=== PATIENT | female | born 1980 | race Caucasian/White ===

== ENCOUNTER 2020-11-07 14:53 | Outpatient (REF) | payer OTHER, SELFPAY | END 2020-11-07 14:54 | disposition home or self-care (01) | LOC: HO.LAB 14:53 | PROVIDERS: PCP Internal Medicine; Visit Provider Internal Medicine | DX: Z20.828 Contact with and (suspected) exposure to other viral communicable diseases (principal) | CPT/HCPCS: C9803; U0003 ==

== ENCOUNTER 2021-03-11 08:59 | Outpatient (REF) | payer OTHER, SELFPAY ==
[2021-03-14 05:42] LABS: HPV mRNA E6/E7 rflx Not Detected (Not Detected)
== END 2021-03-11 09:00 | disposition home or self-care (01) ==
LOC: HO.LAB 08:59
PROVIDERS: PCP Internal Medicine; Visit Provider Obstetrics & Gynecology
DX: Z01.419 Encounter for gynecological examination (general) (routine) without abnormal findings (principal)
CPT/HCPCS: 87624; 88142

== ENCOUNTER 2021-04-10 06:22 | Outpatient (REF) | payer OTHER, SELFPAY ==
[2021-04-10 11:32] LABS: MANUAL DIFF FLAG NO
[2021-04-10 11:47] LABS: Basophils Percent Auto 0.5 % (0-2); Eosinophils Absolute Auto 0.1 X10*3/uL (0.0-0.4); Eosinophils Percent Auto 2.2 % (0-4); Hematocrit 40.7 % (37-47); Hemoglobin 12.9 g/dl (12.0-16.0); Imm Gran Abs Auto 0.02 X10*3/uL (0.00-0.03); Imm Gran Pct Auto 0.3 % (0.0-0.4); Lymphocytes Absolute Auto 1.8 X10*3/uL (1.2-4.9); Lymphocytes Percent Auto 28.1 % (20-40); Mean Corpuscular HGB Conc 31.7 g/dl (31.0-35.0); Mean Corpuscular Hemoglobin 29.5 pg (27.0-33.0); Mean Corpuscular Volume 92.9 fL (80-98); Mean Platelet Volume 9.6 fL (9.4-12.3); Monocytes Absolute Auto 0.4 X10*3/uL (0.1-1.2); Monocytes Percent Auto 5.7 % (2-11); Neutrophils Percent Auto 63.2 % (45-73); Platelet Count 437 X10*3/uL (160-400); Red Blood Count 4.38 X10*6/uL (4.20-5.50); Red Cell Distribution Width 12.7 % (11.0-16.0); White Blood Count 6.4 X10*3/uL (4.8-10.8)
[2021-04-10 11:58] LABS: Glucose Urine UA NEG (NEG); Leukocyte Esterase Urine NEG (NEG); Nitrite Urine NEG (NEG); Specific Gravity - Urine 1.025 (1.005-1.025); Urine Blood NEG (NEG); Urine Ketones NEG (NEG); Urine Protein NEG (NEG-TRACE)
[2021-04-10 12:03] LABS: Alanine Aminotransferase 55 U/L (0-31); Albumin Level 3.9 g/dL (3.5-5.0); Alkaline Phosphatase 118 U/L (39-117); Anion Gap 12 (12-20); Aspartate Amino Transferase 32 U/L (5-31); Bilirubin Total 0.3 mg/dL (0.0-1.0); Blood Urea Nitrogen 17 mg/dL (9-16); Calcium 9.5 mg/dL (8.4-10.2); Carbon Dioxide 29 mmol/L (22-29); Chloride 102 mmol/L (96-108); Cholesterol 193 mg/dL; Estimated Glomerular Filt Rate > 60; Glucose Fasting 91 mg/dL (60-99); HDL Cholesterol 68 mg/dL; LDL Cholesterol Calculated 114 mg/dl; Potassium 4.2 mmol/L (3.3-5.1); Sodium 139 mmol/L (135-145); Total Protein 6.1 g/dL (6.5-8.0); Triglycerides 59 mg/dL
[2021-04-10 12:05] LABS: Appearance Urine CLEAR; Color Urine YELLOW
[2021-04-10 12:26] LABS: TSH reflex Free T4 2.15 uIU/mL (0.32-4.0); Vitamin D 25-OH Total 37.2 ng/mL (>30)
[2021-04-10 12:29] LABS: Erythrocyte Sedimentation Rate 7 MM/HR (0-20)
== END 2021-04-10 06:23 | disposition home or self-care (01) ==
LOC: HO.HMGCLDS 06:22
PROVIDERS: PCP Internal Medicine; Visit Provider Internal Medicine
DX: Z00.00 Encounter for general adult medical examination without abnormal findings (principal); R51.9 Headache, unspecified; G89.29 Other chronic pain; E55.9 Vitamin D deficiency, unspecified
CPT/HCPCS: 36415; 80053; 80061; 81003; 82306; 84443; 85025; 85652

== ENCOUNTER 2021-04-25 15:44 | Outpatient (REF) | payer OTHER, SELFPAY ==
--- NOTE | ~2021-04-25 | MM_ITS ---
EXAMINATION: MM SCREENING DIGITAL BREAST TOMOSYNTHESIS, BILATERAL CLINICAL INFORMATION: Screening. Asymptomatic. No prior breast imaging. Age 40. No known family history breast cancer. The lifetime risk of breast cancer based on the Tyrer-Cuzick Model is 13%. COMPARISON: None (current study represents initial baseline exam). TECHNIQUE: Digital breast tomosynthesis is performed in both the craniocaudal and mediolateral oblique views along with computer-aided detection (CAD). Synthesized 2D images are generated from the tomosynthesis. FINDINGS: The breasts are heterogeneously dense, which may obscure small masses (ACR BI-RADS breast composition Category c). Breast tissue composition borders on average fibroglandular. There are no significant masses, abnormal calcifications, or other abnormalities. The axilla and skin contours are unremarkable. MM/MM tomosynthesis screening BI IMPRESSION: No mammographic evidence of malignancy. ASSESSMENT: BI-RADS 1: Negative RECOMMENDATION: Routine annual mammography screening. This patient's information was entered into a reminder system with a target due date for their next mammogram.
== END 2021-04-25 15:45 | disposition home or self-care (01) ==
LOC: HO.MAMMO 15:44
PROVIDERS: Visit Provider Obstetrics & Gynecology
DX: Z12.31 Encounter for screening mammogram for malignant neoplasm of breast (principal)
CPT/HCPCS: 77063; 77067

== ENCOUNTER 2021-09-11 17:49 | Emergency (ER) | payer OTHER, SELFPAY ==
--- NOTE | ~2021-09-11 | CT_ITS ---
EXAM: Noncontrast CT scan of the head and cervical spine. INDICATION: Fall with head injury and neck pain. COMPARISON: None TECHNIQUE: Axial slices were obtained from skull base to vertex and displayed. This was followed by helical, multislice, multidetector axial images from the occiput to the upper thorax. Coronal and sagittal reformats of the cervical spine in addition to coronal reformats of the head were obtained at the technologist workstation. DLP: 1179 mGy-cm FINDINGS: HEAD: There is no evidence of acute intracranial hemorrhage or territorial infarction. No abnormal mass effect or midline shift is appreciated. Wright-white differentiation is well preserved. No extra-axial fluid collections. The ventricular system and cortical sulci are normal in size. The osseous structures and soft tissues are normal. The visualized paranasal sinuses and mastoid air cells are well aerated. SPINE: There is straightening of the normal cervical lordosis. Alignment is otherwise unremarkable. Normal C1/2 articulation. Vertebral body heights and disc spaces are well-maintained. No significant degenerative changes. No prevertebral soft tissue swelling. Visualized lung apices are well aerated. CT/CT cervical spine wo con IMPRESSION: 1. No acute intracranial pathology. 2. No fractures or dislocations of the cervical spine. This CT examination was performed using dose optimization techniques as appropriate, variously including the following: *Automated exposure control *Adjustment of mA and/or kV according to patient size (this includes techniques or standardized protocols for targeted exams where dose is matched to indication/reason for exam; i.e. extremities or head) *Use of iterative reconstruction technique
--- NOTE | ~2021-09-11 | CT_ITS ---
EXAM: Noncontrast CT scan of the head and cervical spine. INDICATION: Fall with head injury and neck pain. COMPARISON: None TECHNIQUE: Axial slices were obtained from skull base to vertex and displayed. This was followed by helical, multislice, multidetector axial images from the occiput to the upper thorax. Coronal and sagittal reformats of the cervical spine in addition to coronal reformats of the head were obtained at the technologist workstation. DLP: 1179 mGy-cm FINDINGS: HEAD: There is no evidence of acute intracranial hemorrhage or territorial infarction. No abnormal mass effect or midline shift is appreciated. Wright-white differentiation is well preserved. No extra-axial fluid collections. The ventricular system and cortical sulci are normal in size. The osseous structures and soft tissues are normal. The visualized paranasal sinuses and mastoid air cells are well aerated. SPINE: There is straightening of the normal cervical lordosis. Alignment is otherwise unremarkable. Normal C1/2 articulation. Vertebral body heights and disc spaces are well-maintained. No significant degenerative changes. No prevertebral soft tissue swelling. Visualized lung apices are well aerated. CT/CT head/brain wo con IMPRESSION: 1. No acute intracranial pathology. 2. No fractures or dislocations of the cervical spine. This CT examination was performed using dose optimization techniques as appropriate, variously including the following: *Automated exposure control *Adjustment of mA and/or kV according to patient size (this includes techniques or standardized protocols for targeted exams where dose is matched to indication/reason for exam; i.e. extremities or head) *Use of iterative reconstruction technique
[2021-09-11 18:02] VITALS: BP 119/72; PULSE 76; RESP 18; TEMP 36.6; O2SAT 98; BMI 23.0
--- NOTE | 2021-09-11 19:38 | ED_ITS ---
HPI - Head Injury General Chief complaint: Fall Stated complaint: concussion? Time Seen by Provider: 09/11/21 19:36 Source: patient Mode of arrival: ambulatory Limitations: no limitations History of Present Illness HPI Narrative: 40-year-old female came in for evaluation of headache after a fall. Patient was carrying a baby then tripped on objects on the floor fell down twisting her body, hit her head and neck, and the right shoulder, also hurting her both knees, patient do not remember how she exactly fell. Patient otherwise declined blurry vision, nausea, vomiting, or fever. Related Data Home Medications Medication Instructions Recorded Confirmed spironolactone 100 mg tablet 100 mg PO BID 09/11/21 Allergies Allergy/AdvReac Type Severity Reaction Status Date / Time sulfadiazine Allergy Unknown unknown Verified 09/11/21 18:06 Review of Systems Review of Systems: All other systems are reviewed and are negative Constitutional: Reports as per HPI and Reports no additional constitutional complaints Eyes: Reports as per HPI and Reports no additional eye complaints Reports system reviewed and no additional complaints, except as documented Cardiovascular: Reports as per HPI and Reports no additional cardiovascular complaints Respiratory: Reports as per HPI and Reports no additional respiratory complaints Gastrointestinal: Reports as per HPI and Reports no additional gastrointestinal complaints Genitourinary: Reports no additional female genitourinary complaints Musculoskeletal: Reports no additional musculoskeletal complaints Skin/Breast: Reports system reviewed and no additional complaints, except as docu Psychiatric: Reports no additional psychiatric complaints Endocrine: Reports no additional endocrine complaints Hematologic/Lymphatic: Reports no additional hematologic/lymphatic complaints Allergic/Immunologic: Reports no additional allergic/immunologic complaints Reports system reviewed and no additional complaints, except as documented and Reports Abnormal speech present [facility] Past Medical History Medical History Depression Headache Surgical History No pertinent past surgical history Family History Family History Father Medical history unknown Mother Stroke Diabetes CVD (cardiovascular disease) Social History Social History Alcohol intake: current Alcohol intake frequency: holidays/special occasions only Advance Directives: No Gender identity: Female Physical Exam Vital Signs: Vital Signs: Last Vital Signs Temp 97.9 F 09/11/21 18:02 Pulse 76 09/11/21 18:02 Resp 18 09/11/21 18:02 BP 119/72 09/11/21 18:02 Pulse Ox 98 09/11/21 18:02 Body Mass Index 23.0 Vital signs have been reviewed as appeared to be correct. Blood pressure normal. Heart rate normal. Respiration rate normal. Temperature normal. Oxygen saturation normal. Appearance: Alert. Oriented X3. No acute distress. GCS 15 Head: Normal external exam. Normocephalic. Atraumatic. No Hoskins signs noted. No raccoon eyes noted Eyes: PERRLA. EOMI. Conjunctiva and sclera normal. Eyelids normal. ENT: TM's Normal. Pharynx normal. Uvula midline. Moist mucous membranes. No trismus noted. No drooling noted. No muffled voice noted. Neck: Normal inspection. Neck supple. FROM. No adenopathy. Thyroid Normal. No meningeal signs. No neck mass noted. CVS: Normal heart rate and rhythm. Heart sound normal. No murmurs noted. Pulses normal throughout. Respiratory: No respiratory distress. Painless inspiration. Breath sounds normal. No wheezes/rales/rhonchi noted. Chest nontender. No accessory muscle usage noted or decreased air movement noted. Abdomen: Soft and nontender. Bowel sounds normal in all 4 quadrants. No distention noted. No organomegaly noted. No visible injury noted. Back: No CVA tenderness. Full range of motion noted. Skin: Skin warm and dry. Normal skin color. Normal skin turgor. No rashes/lesions/lacerations noted. Extremities: Right shoulder tenderness, no step-off, no deformity, painful for range of motion, 3 x 4 cm area of ecchymosis on lateral aspect of the right arm, bilateral knee tenderness, no deformity, no swelling, full range of motion. Neuro: Oriented X 3. GCS 15 Cranial nerve exam: II-XII are grossly intact No motor deficit. No sensory deficit. Reflexes normal. Course Course Course Narrative: Assessment and plan. 40-year-old female status post fall yesterday,l neuro exam is intact with unremarkable CT head and C-spine. Patient with contusion to right shoulder and bilateral knees but able to ambulate. Was instructed to use NSAIDs and continue with icing. MDM - Head Injury Imaging Data Head/C-spine CT: Radiologist's impression: No acute intracranial pathology, no cervical spine fracture. Discharge Plan Discharge Clinical Impression: Headache, Closed head injury, Injury of neck, superficial, Contusion of right shoulder, Contusion of knee Patient Disposition: Home, Self-Care Instructions: Head Injury (ED), Contusion in Adults (ED) Prescriptions: No Action spironolactone 100 mg tablet 100 mg PO BID RF: 0 Referrals: Fco Kern MD [Primary Care Provider] - 2 days
[2021-09-11] MEDS: oxyCODONE HCl Immed Release 5 MG TABLET PO (20:02)
== END 2021-09-11 21:07 | disposition home or self-care (01) ==
PROVIDERS: Emergency Provider Emergency Medicine; PCP Internal Medicine
DX: S40.021A Contusion of right upper arm, initial encounter (principal); S80.02XA Contusion of left knee, initial encounter; S80.01XA Contusion of right knee, initial encounter; G44.309 Post-traumatic headache, unspecified, not intractable; M54.2 Cervicalgia; W01.10XA Fall on same level from slipping, tripping and stumbling with subsequent striking against unspecified object, initial encounter; Y93.9 Activity, unspecified; Y92.9 Unspecified place or not applicable; Y99.9 Unspecified external cause status; Z79.899 Other long term (current) drug therapy
CPT/HCPCS: 70450; 72125; 99284

== ENCOUNTER 2021-10-07 06:14 | Emergency (ER) | payer OTHER, SELFPAY ==
[2021-10-07 06:21] VITALS: BP 111/78; PULSE 100; RESP 16; O2SAT 97; BMI 22.3
[2021-10-07 06:34] VITALS: TEMP 36.9
--- NOTE | 2021-10-07 06:49 | ED.NAVMDI ---
HPI - Nausea/Vomiting/Diarrhea General Chief complaint: Nausea/Vomiting/Diarrhea Stated complaint: Nausea, possible stomach bug Time Seen by Provider: 10/07/21 06:37 Source: patient Mode of arrival: ambulatory Limitations: no limitations History of Present Illness HPI Narrative: 40-year-old female past medical history significant for chronic migraines, PCOS and depression presents to the emergency department with 1 day of nausea, vomiting, abdominal cramping and headache. Patient states 2 of her family members are sick with similar symptoms, and this appears to be something viral. She states that every time she eats she becomes nauseous and ends up throwing up. She has thrown up a total of 3 times, she throws up which she describes as stomach acid. Patient states she has been drinking plenty of fluids. She states she is not having abdominal pain, however she would describe it as abdominal cramping. She also mentions that she has had a migraine for the past day, she takes Fioricet for her migraines. She states this is her typical migraine, there is nothing different about this migraine. She denies dizziness, vision changes, weakness, chest pain, shortness of breath, fevers, chills, diarrhea. She denies previous abdominal surgeries MD elicited complaint: nausea, vomiting and abdominal pain (abodminal cramping ) Description of vomiting: food contents and other ( stomach acid ) Associated nausea: Yes Associated abdominal pain: Yes (cramping ) Location of pain: diffuse Pain consistency: constant Severity: mild Quality: cramping Exacerbating factors: eating Relieving factors: none Context: sick contacts Associated symptoms: denies other symptoms Treatment prior to arrival: other (Fioricet) Related Data Home Medications Medication Instructions Recorded Confirmed spironolactone 100 mg tablet 100 mg PO BID 09/11/21 multivitamin with minerals 1 tab PO DAILY 10/02/21 (Hair,Skin and Nails) tumeric 100 mg-demond 150 mg-olive cap PO 10/02/21 50 mg-oreg 150 mg-caprylate capsule Previous Rx's Medication Instructions Recorded sbfyvewwlb-tagkozcgrxpxe-ousardyy 1 tab PO Q6H PRN #7 tab 10/02/21 50 mg-325 mg-40 mg tablet metoclopramide HCl 10 mg tablet 10 mg PO Q6H PRN #14 tab 10/07/21 (Reglan) ondansetron 4 mg disintegrating 4 mg PO DAILY PRN #7 tab 10/07/21 tablet Allergies Allergy/AdvReac Type Severity Reaction Status Date / Time sulfadiazine Allergy Unknown unknown Verified 10/07/21 06:25 Review of Systems Review of Systems: Constitutional : No Weight loss, No Fever, No Chills, No Fatigue, No Malaise ENT/Mouth : No sore throat, No Rhinorrhea Eyes: No Eye Pain, No Swelling, No Redness Cardiovascular : No Chest Pain, No SOB, No Dyspnea on Exertion, No Orthopnea, No Edema, No Palpitations Respiratory : No Cough, No Sputum, No Wheezing Gastrointestinal : + Nausea, + Vomiting, No Diarrhea, No Constipation, + abdominal Pain, No Hematochezia, No Melena Genitourinary : No Dysuria, No Urinary Frequency, No Hematuria, Musculoskeletal : No joint pain, No Myalgias, No Joint Swelling Skin : No Skin Lesions, No rash Neuro : No Weakness, No Numbness, No Dizziness, No Headache All other systems reviewed and are negative Gastrointestinal: Gastrointestinal: Reports nausea PMFSH Past Medical History Attestation statement: The following information was validated with the patient. Source: old records reviewed and nursing notes reviewed Medical History Depression Headache Herpes PCOS (polycystic ovarian syndrome) Surgical History No pertinent past surgical history Family History Family History Father Medical history unknown Mother Stroke Diabetes CVD (cardiovascular disease) Social History Social History Alcohol intake: current Alcohol intake frequency: holidays/special occasions only Advance Directives: No Advance Directives Information Provided: Yes Patient : No Gender identity: Female Physical Exam Vital Signs: Vital Signs: Last Vital Signs Temp 99.0 F 10/07/21 07:24 Pulse 77 10/07/21 07:24 Resp 16 10/07/21 07:24 BP 95/67 10/07/21 07:24 Pulse Ox 100 10/07/21 07:24 Body Mass Index 22.3 Appearance: Alert.? Oriented X3.? No acute distress.? Head: Normocephalic, atraumatic, no step-offs or deformities Eyes: Pupils equal, round and reactive to light.?EOMI pain free ENT: Pharynx normal.? Neck: Normal inspection.? Neck supple.? CVS: Normal heart rate and rhythm.? Pulses normal.? Respiratory: No respiratory distress.? Breath sounds normal.? Abdomen: Soft and nontender.? Skin: Skin warm and dry.? Normal skin color.? Normal skin turgor.? Extremities: No lower extremity edema.? No calf ttp. 5/5 strength to bilateral upper and lower extremities Back: No midline tenderness, no C-spine tenderness, full range of motion, no CVA tenderness bilaterally Neuro: Oriented X 3.? No motor deficit.? No sensory deficit. 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 Normal finger to nose. Heel to xiong Course Reevaluation(s) Reevaluation #1: At this time vital signs are stable, labs show no acute infection, no anemia, no acute electrolyte abnormalities. Transaminases are noted to be slightly elevated, however it appears as though they have been elevated in the past. UA clean of infection. COVID is negative. First L of fluids is currently running, and Zofran has been administered. Upon re-evaluation patient is feeling much better. She states she is tired her nausea, and vomiting have resolved. Seeing as though Zofran helped this patient she will be discharged home on sublingual Zofran. She has been advised to drink plenty of fluids. And to Return to the emergency department with any new or worsening symptoms such as fevers, chills, worsening vomiting or abdominal pain, chest pain or shortness of breath. Patient is safe for discharge home with PCP follow-up. This is likely viral gastroenteritis. Time: 07:57 MDM - Nausea/Vomiting/Diarrhea MDM Narrative Medical decision making narrative: [id number] This is a 40-year-old female past medical history significant for chronic migraines, depression, PCOS who presents to the emergency department with complaints of 1 day nausea, vomiting, migraine, abdominal cramping. Patient reports sick contacts at home with similar symptoms. Patient states this feels like her typical migraine, her migraines are well controlled with Fioricet at home. She denies vision changes, weakness, chest pain, shortness of breath, diarrhea. No previous abdominal surgeries Upon physical examination patient appears comfortable on the exam table in no distress. S1-S2 appreciated free of murmurs. Lungs are clear to auscultation bilaterally. Abdomen is soft nontender nondistended. Patient has 5/5 strength upper and lower extremities. Normal udmzjr-cb-mpgh, qvpe-xk-btiu normal gait. No focal neuro deficits. Plan at this time is to obtain basic labs, COVID, UA, urine , orthostatic vital signs. Patient will be given fluids and Zofran for symptoms. I offered the patient treatment for her migraine, however she states that she would not like treatment at this time for her migraine. Lab Data Result diagrams: 10/07/21 06:41 10/07/21 06:41 Labs: Lab Results 10/07/21 10/07/21 10/07/21 Range/Units 06:41 06:41 06:41 WBC 9.2 (4.8-10.8) X10*3/uL RBC 4.88 (4.20-5.50) X10*6/uL Hgb 14.5 (12.0-16.0) g/dl Hct 44.2 (37.0-47.0) % MCV 90.6 (80.0-98.0) fL MCH 29.7 (27.0-33.0) pg MCHC 32.8 (31.0-35.0) g/dl RDW 12.2 (11.0-16.0) % Plt Count 363 (160-400) X10*3/uL MPV 9.2 L (9.4-12.3) fL Immature Gran % (Auto) 0.4 (0.0-0.4) % Neut % (Auto) 93.8 H (45-73) % Lymph % (Auto) 3.1 L (20-40) % [place] % (Auto) 2.1 (2-11) % Eos % (Auto) 0.3 (0-4) % Baso % (Auto) 0.3 (0-2) % Lymph # (Auto) 0.3 L (1.2-4.9) X10*3/uL [place] # (Auto) 0.2 (0.1-1.2) X10*3/uL Eos # (Auto) 0.0 (0.0-0.4) X10*3/uL Baso # (Auto) 0.0 (0.0-0.2) X10*3/uL Abs Immat Gran (auto) 0.04 H (0.00-0.03) X10*3/uL Absolute Neuts (auto) 8.6 H (2.0-8.3) x10*3/uL Absolute Nucleated RBC 0.000 (0.0-0.012) X10*3/uL Nucleated RBC % (auto) 0.0 (0.0-0.2) /100WBC Smear Tech's Comments VERIFIED Sodium 137 (135-145) mmol/L Potassium 4.2 (3.3-5.1) mmol/L Chloride 101 (96-108) mmol/L Carbon Dioxide 29 (22-29) mmol/L Anion Gap 11 L (12-20) BUN 14 (9-16) mg/dL Creatinine 0.80 (0.5-1.4) mg/dL Estim Creat Clear Calc 80.7 Estimated GFR > 60 Fasting Glucose 125 H (60-99) mg/dL Calcium 9.5 (8.4-10.2) mg/dL Total Bilirubin 0.6 (0.0-1.0) mg/dL AST 39 H (5-31) U/L ALT 45 H (0-31) U/L Alkaline Phosphatase 100 (39-117) U/L Total Protein 6.9 (6.5-8.0) g/dL Albumin 4.4 (3.5-5.0) g/dL Lipase 23 (8-78) U/L Urine Color Urine Appearance Urine pH (5.0-8.0) Ur Specific [place] (1.005-1.025) Urine Protein (NEG-TRACE) MG/DL Urine Glucose (UA) (NEG) MG/DL Urine Ketones (NEG) MG/DL Urine Blood (NEG) Urine Nitrite (NEG) Ur Leukocyte Esterase (NEG) Urine RBC (0) /HPF Urine WBC (0-4) /HPF Ur Squamous Epith Cells /LPF Urine Bacteria /LPF Urine Test (NEGATIVE) COVID-19 ([facility]) Negative (Negative) COVID-19 Clin Com See Note 10/07/21 10/07/21 Range/Units 07:27 07:27 WBC (4.8-10.8) X10*3/uL RBC (4.20-5.50) X10*6/uL Hgb (12.0-16.0) g/dl Hct (37.0-47.0) % MCV (80.0-98.0) fL MCH (27.0-33.0) pg MCHC (31.0-35.0) g/dl RDW (11.0-16.0) % Plt Count (160-400) X10*3/uL MPV (9.4-12.3) fL Immature Gran % (Auto) (0.0-0.4) % Neut % (Auto) (45-73) % Lymph % (Auto) (20-40) % [place] % (Auto) (2-11) % Eos % (Auto) (0-4) % Baso % (Auto) (0-2) % Lymph # (Auto) (1.2-4.9) X10*3/uL [place] # (Auto) (0.1-1.2) X10*3/uL Eos # (Auto) (0.0-0.4) X10*3/uL Baso # (Auto) (0.0-0.2) X10*3/uL Abs Immat Gran (auto) (0.00-0.03) X10*3/uL Absolute Neuts (auto) (2.0-8.3) x10*3/uL Absolute Nucleated RBC (0.0-0.012) X10*3/uL Nucleated RBC % (auto) (0.0-0.2) /100WBC Smear Tech's Comments Sodium (135-145) mmol/L Potassium (3.3-5.1) mmol/L Chloride (96-108) mmol/L Carbon Dioxide (22-29) mmol/L Anion Gap (12-20) BUN (9-16) mg/dL Creatinine (0.5-1.4) mg/dL Estim Creat Clear Calc Estimated GFR Fasting Glucose (60-99) mg/dL Calcium (8.4-10.2) mg/dL Total Bilirubin (0.0-1.0) mg/dL AST (5-31) U/L ALT (0-31) U/L Alkaline Phosphatase (39-117) U/L Total Protein (6.5-8.0) g/dL Albumin (3.5-5.0) g/dL Lipase (8-78) U/L Urine Color YELLOW Urine Appearance CLEAR Urine pH 8.0 (5.0-8.0) Ur Specific [place] 1.010 (1.005-1.025) Urine Protein NEG (NEG-TRACE) MG/DL Urine Glucose (UA) NEG (NEG) MG/DL Urine Ketones NEG (NEG) MG/DL Urine Blood TRACE (NEG) Urine Nitrite NEG (NEG) Ur Leukocyte Esterase NEG (NEG) Urine RBC 0-2 (0) /HPF Urine WBC 0 (0-4) /HPF Ur Squamous Epith Cells 1+ /LPF Urine Bacteria TRACE /LPF Urine Test NEGATIVE (NEGATIVE) COVID-19 ([facility]) (Negative) COVID-19 Clin Com Critical Care Time Critical Care Time Critical Care Time: No Discharge Plan Discharge Clinical Impression: Gastroenteritis, Headache, Nausea & vomiting Patient Disposition: Home, Self-Care Instructions: Gastroenteritis (ED), Acute Headache (ED), Acute Nausea and Vomiting (ED) Additional Instructions: Drink plenty of fluids Zofran is a medication has been sent to your pharmacy for nausea/vomiting. Take this as needed Follow-up with your primary care provider this week. Return to the emergency department with new or worsening symptoms. Such as worsening pain, nausea, vomiting, fevers, chills, chest pain, shortness of breath In case of emergency call 911 Prescriptions: New ondansetron 4 mg tablet,disintegrating 4 mg PO DAILY PRN (Reason: nausea and vomiting) Qty: 7 RF: 0 metoclopramide HCl [Reglan] 10 mg tablet 10 mg PO Q6H PRN (Reason: nausea and vomiting) Qty: 14 RF: 0 No Action spironolactone 100 mg tablet 100 mg PO BID RF: 0 multivitamin with minerals [Hair,Skin and Nails] Tablet 1 tab PO DAILY RF: 0 iotbxht-jzpf-xcumo-oreg-capryl 100 mg-150 mg- 50 mg-150 mg capsule PO RF: 0 koqhdsklqx-vrzugufhycaze-necd 50-325-40 mg tablet 1 tab PO Q6H PRN (Reason: pain) Qty: 7 RF: 0 Referrals: Fco Kern MD [Primary Care Provider] - 2 days Stand Alone Forms: Work/School Release Interventions: ED Discharge Assessment Last Done: 10/07/21 08:21 Discharge Date/Time: 10/07/21 08:22 Print Language: Austrian
[2021-10-07] MEDS: 0.9 % Sodium Chloride 1,000 ML 999 ML IV (06:53)
[2021-10-07] MEDS: ondansetron HCL 4 MG/2 ML VIAL IVPUSH (06:53)
[2021-10-07 06:56] LABS: Basophils Percent Auto 0.3 % (0-2); Eosinophils Percent Auto 0.3 % (0-4); Hematocrit 44.2 % (37.0-47.0); Hemoglobin 14.5 g/dl (12.0-16.0); Imm Gran Abs Auto 0.04 X10*3/uL (0.00-0.03); Imm Gran Pct Auto 0.4 % (0.0-0.4); Lymphocytes Absolute Auto 0.3 X10*3/uL (1.2-4.9); Lymphocytes Percent Auto 3.1 % (20-40); MANUAL DIFF FLAG SCAN; Mean Corpuscular HGB Conc 32.8 g/dl (31.0-35.0); Mean Corpuscular Hemoglobin 29.7 pg (27.0-33.0); Mean Corpuscular Volume 90.6 fL (80.0-98.0); Mean Platelet Volume 9.2 fL (9.4-12.3); Monocytes Absolute Auto 0.2 X10*3/uL (0.1-1.2); Monocytes Percent Auto 2.1 % (2-11); Neutrophils Absolute Auto 8.6 x10*3/uL (2.0-8.3); Neutrophils Percent Auto 93.8 % (45-73); Platelet Count 363 X10*3/uL (160-400); Red Blood Count 4.88 X10*6/uL (4.20-5.50); Red Cell Distribution Width 12.2 % (11.0-16.0); SCAN SMEAR FLAG 1; White Blood Count 9.2 X10*3/uL (4.8-10.8)
[2021-10-07 07:02] LABS: COVID-19 Test Negative (Negative)
[2021-10-07 07:03] LABS: Alanine Aminotransferase 45 U/L (0-31); Albumin Level 4.4 g/dL (3.5-5.0); Alkaline Phosphatase 100 U/L (39-117); Anion Gap 11 (12-20); Aspartate Amino Transferase 39 U/L (5-31); Bilirubin Total 0.6 mg/dL (0.0-1.0); Blood Urea Nitrogen 14 mg/dL (9-16); Calcium 9.5 mg/dL (8.4-10.2); Carbon Dioxide 29 mmol/L (22-29); Chloride 101 mmol/L (96-108); Creatinine Clr Calc Pharmacy 80.7; Estimated Glomerular Filt Rate > 60; Glucose Fasting 125 mg/dL (60-99); Lipase 23 U/L (8-78); Potassium 4.2 mmol/L (3.3-5.1); Sodium 137 mmol/L (135-145); Total Protein 6.9 g/dL (6.5-8.0)
[2021-10-07 07:16] LABS: SLIDE REVIEW VERIFIED
[2021-10-07 07:24] VITALS: BP 95/67; PULSE 77; RESP 16; TEMP 37.2; O2SAT 100
[2021-10-07 07:33] LABS: Appearance Urine CLEAR; Color Urine YELLOW; Glucose Urine UA NEG (NEG); Leukocyte Esterase Urine NEG (NEG); Nitrite Urine NEG (NEG); UACC Culture Trigger NO; Urine Blood TRACE (NEG); Urine Ketones NEG (NEG); Urine Protein NEG (NEG-TRACE)
[2021-10-07 07:35] LABS: UPreg QC Valid YES; Urine Pregnancy NEGATIVE (NEGATIVE)
[2021-10-07 08:37] LABS: RBC Urine 0-2 /HPF (0); Squamous Epithelial Cell Urine 1+ /LPF; WBC Urine 0 /HPF (0-4)
[2021-10-07 08:38] LABS: Bacteria Urine TRACE /LPF
== END 2021-10-07 08:22 | disposition home or self-care (01) ==
PROVIDERS: Physician Assistant; Emergency Provider Emergency Medicine Emergency Medical Services; PCP Internal Medicine
DX: K52.9 Noninfective gastroenteritis and colitis, unspecified (principal); R51.9 Headache, unspecified; R11.2 Nausea with vomiting, unspecified; Z20.822 Contact with and (suspected) exposure to COVID-19; Z79.899 Other long term (current) drug therapy
CPT/HCPCS: 36415; 80053; 81001; 81025; 83690; 85025; 87635; 96361; 96374; 99284; J2405

== ENCOUNTER 2021-11-19 16:49 | Outpatient (REF) | payer OTHER, SELFPAY ==
[2021-11-19 17:43] LABS: Influenza A PCR NEGATIVE (Negative); Influenza B PCR NEGATIVE (Negative); Resp Syncy Virus RNA Qual PCR NEGATIVE (Negative); SARS COV2 PCR INHOUSE NEGATIVE (Negative)
== END 2021-11-19 16:50 | disposition home or self-care (01) ==
LOC: HO.LNP 16:49
PROVIDERS: Visit Provider Physician Assistant
DX: Z20.822 Contact with and (suspected) exposure to COVID-19 (principal); J02.9 Acute pharyngitis, unspecified
CPT/HCPCS: 0241U

== ENCOUNTER 2022-03-13 09:55 | Outpatient (REF) | payer OTHER, SELFPAY ==
[2022-03-13 16:31] LABS: CT PCR NOT DETECTED (Not Detect.); NG PCR NOT DETECTED (Not Detect.)
[2022-03-14 14:43] LABS: BV Int Neg Control Negative (Negative); BV Int Pos Control Positive (Positive)
[2022-03-18 09:36] LABS: HPV mRNA E6/E7 rflx Not Detected (Not Detected)
== END 2022-03-13 09:56 | disposition home or self-care (01) ==
LOC: HO.LAB 09:55
PROVIDERS: PCP Internal Medicine; Visit Provider Advanced Practice Midwife
DX: Z01.411 Encounter for gynecological examination (general) (routine) with abnormal findings (principal); Z11.51 Encounter for screening for human papillomavirus (HPV); Z20.2 Contact with and (suspected) exposure to infections with a predominantly sexual mode of transmission; N93.9 Abnormal uterine and vaginal bleeding, unspecified; F32.9 Major depressive disorder, single episode, unspecified
CPT/HCPCS: 87480; 87491; 87510; 87591; 87624; 87660; 88142

== ENCOUNTER 2022-04-15 06:13 | Outpatient (REF) | payer OTHER, SELFPAY ==
[2022-04-15 06:34] LABS: MANUAL DIFF FLAG NO
[2022-04-15 07:18] LABS: Basophils Absolute Auto 0.1 X10*3/uL (0.0-0.2); Basophils Percent Auto 0.9 % (0-2); Eosinophils Absolute Auto 0.2 X10*3/uL (0.0-0.4); Eosinophils Percent Auto 3.4 % (0-4); Hemoglobin 13.2 g/dl (12.0-16.0); Imm Gran Abs Auto 0.02 X10*3/uL (0.00-0.03); Imm Gran Pct Auto 0.4 % (0.0-0.4); Lymphocytes Absolute Auto 1.7 X10*3/uL (1.2-4.9); Lymphocytes Percent Auto 32.2 % (20-40); Mean Corpuscular Hemoglobin 29.7 pg (27.0-33.0); Mean Corpuscular Volume 90.1 fL (80.0-98.0); Mean Platelet Volume 9.5 fL (9.4-12.3); Monocytes Absolute Auto 0.3 X10*3/uL (0.1-1.2); Monocytes Percent Auto 5.4 % (2-11); Neutrophils Absolute Auto 3.1 x10*3/uL (2.0-8.3); Neutrophils Percent Auto 57.7 % (45-73); Platelet Count 355 X10*3/uL (160-400); Red Blood Count 4.44 X10*6/uL (4.20-5.50); Red Cell Distribution Width 12.2 % (11.0-16.0); White Blood Count 5.3 X10*3/uL (4.8-10.8)
[2022-04-15 07:44] LABS: Alanine Aminotransferase 23 U/L (0-31); Albumin Level 3.9 g/dL (3.5-5.0); Alkaline Phosphatase 88 U/L (39-117); Anion Gap 11 (12-20); Aspartate Amino Transferase 21 U/L (5-31); Bilirubin Total 0.5 mg/dL (0.0-1.0); Blood Urea Nitrogen 15 mg/dL (9-16); Calcium 9.2 mg/dL (8.4-10.2); Carbon Dioxide 27 mmol/L (22-29); Chloride 107 mmol/L (96-108); Cholesterol 168 mg/dL; Estimated Glomerular Filt Rate > 60; Glucose Fasting 91 mg/dL (60-99); HDL Cholesterol 53 mg/dL; LDL Cholesterol Calculated 107 mg/dl; Potassium 4.4 mmol/L (3.3-5.1); Sodium 141 mmol/L (135-145); Total Protein 6.3 g/dL (6.5-8.0); Triglycerides 41 mg/dL
[2022-04-15 07:57] LABS: Estimated Average Glucose 105 mg/dL; Hemoglobin A1c % 5.3 %
[2022-04-15 08:08] LABS: Vitamin D 25-OH Total 35.2 ng/mL (>30)
[2022-04-15 08:57] LABS: Appearance Urine CLEAR; Color Urine YELLOW; Glucose Urine UA NEG (NEG); Leukocyte Esterase Urine NEG (NEG); Nitrite Urine NEG (NEG); PH 6.5 (5.0-8.0); UACC Culture Trigger NO; Urine Blood TRACE (NEG); Urine Ketones NEG (NEG); Urine Protein TRACE MG/DL (NEG-TRACE)
[2022-04-15 09:15] LABS: Squamous Epithelial Cell Urine 1+ /LPF
[2022-04-15 09:16] LABS: Bacteria Urine TRACE /LPF; Mucus Urine 2+ /LPF; WBC Urine 0-2 /HPF (0-4)
== END 2022-04-15 06:14 | disposition home or self-care (01) ==
LOC: HO.LAB 06:13
PROVIDERS: PCP Internal Medicine; Visit Provider Internal Medicine
DX: Z00.00 Encounter for general adult medical examination without abnormal findings (principal); R73.9 Hyperglycemia, unspecified; E55.9 Vitamin D deficiency, unspecified; E28.2 Polycystic ovarian syndrome
CPT/HCPCS: 36415; 80053; 80061; 81001; 82306; 83036; 84443; 85025

== ENCOUNTER 2022-04-18 08:29 | Outpatient (REF) | payer OTHER, SELFPAY ==
--- NOTE | ~2022-04-18 | XR_ITS ---
EXAMINATION: XR TOES, LEFT CLINICAL INFORMATION: Left toe pain, 4th. COMPARISON: 06/22/2017 TECHNIQUE: 3 views of the left toes were obtained. FINDINGS: There is no evidence of acute fracture or dislocation of the left 4th toe. There is some mild degenerative change of the distal interphalangeal joint. No destructive bony lesion identified. Appearance is unchanged from prior study of 06/22/2017. XR/XR toe LT min 2V IMPRESSION: Unremarkable examination.
== END 2022-04-18 08:30 | disposition home or self-care (01) ==
LOC: HO.XRAY 08:29
PROVIDERS: PCP Internal Medicine; Visit Provider Internal Medicine
DX: M79.675 Pain in left toe(s) (principal)
CPT/HCPCS: 73660

== ENCOUNTER 2022-04-27 15:22 | Outpatient (REF) | payer OTHER, SELFPAY ==
--- NOTE | ~2022-04-27 | MM_ITS ---
EXAMINATION: MM SCREENING DIGITAL BREAST TOMOSYNTHESIS, BILATERAL CLINICAL INFORMATION: Screening. Asymptomatic. The lifetime risk of breast cancer based on the Tyrer-Cuzick Model is 13.4%. COMPARISON: Mammography: 04/25/2021 TECHNIQUE: Digital breast tomosynthesis is performed in both the craniocaudal and mediolateral oblique views along with computer-aided detection (CAD). Synthesized 2D images are generated from the tomosynthesis. FINDINGS: The breasts are heterogeneously dense, which may obscure small masses (ACR BI-RADS breast composition Category c). There is a stable parenchymal pattern of the right breast without new abnormal dominant mass or suspicious grouping of microcalcifications. Within the deep lateral aspect of the left breast there is an asymmetric density which I do not see a correlate on the mediolateral oblique image. Spot compression view is recommended as well as rolled craniocaudal views. MM/MM tomosynthesis screening BI IMPRESSION: Left breast density for further evaluation as described. ASSESSMENT: BI-RADS 0: Incomplete - Need Additional Imaging Evaluation RECOMMENDATION: 1. Additional views of the left breast. 2. Targeted ultrasound if warranted after review of the additional views. 3. Radiology department staff will contact the patient for additional imaging. This patient's information was entered into a reminder system with a target due date for their next mammogram.
== END 2022-04-27 15:23 | disposition home or self-care (01) ==
LOC: HO.MAMMO 15:22
PROVIDERS: Visit Provider Advanced Practice Midwife
DX: Z12.31 Encounter for screening mammogram for malignant neoplasm of breast (principal)
CPT/HCPCS: 77063; 77067

== ENCOUNTER 2022-05-12 14:51 | Outpatient (REF) | payer OTHER, SELFPAY ==
--- NOTE | ~2022-05-12 | MM_ITS ---
EXAMINATION: MM DIAGNOSTIC DIGITAL BREAST TOMOSYNTHESIS, LEFT US DIAGNOSTIC ULTRASOUND BREAST, LEFT CLINICAL INFORMATION: Recall from screening for question of asymmetric density lateral left breast. TC score 13%. COMPARISON: Mammography: 04/27/2022, 04/25/2021 (baseline). TECHNIQUE: Digital breast tomosynthesis is performed. 2D images are generated from the tomosynthesis. The following views are obtained: Spot CC, rolled CC x2, spot MLO x2. Ultrasound left breast is targeted to the outer breast using grayscale imaging and color Doppler without and with harmonics. FINDINGS: The breasts are heterogeneously dense, which may obscure small masses (ACR BI-RADS breast composition Category c). Additional views show inhomogeneous parenchymal pattern similar to the baseline exam. There is no interval mass or architectural abnormality or new asymmetric density. There are of a recall shows admixture of fibroglandular and fatty tissue composition. Ultrasound demonstrates no solid mass or architectural abnormality. No focal duct ectasia. There is an incidental tiny cyst 2:00 position 7 cm from nipple measuring under 4 mm. Results are discussed with the patient at time of visit. MM/MM tomosynthesis added views L IMPRESSION: -No significant changes from baseline exam. -Incidental tiny cyst 2:00 position, unrelated to finding for recall. ASSESSMENT: BI-RADS 2: Benign RECOMMENDATION: Routine annual mammography screening. This patient's information was entered into a reminder system with a target due date for their next mammogram.
== END 2022-05-12 14:52 | disposition home or self-care (01) ==
LOC: HO.MAMMO 14:51
PROVIDERS: PCP Internal Medicine; Visit Provider Advanced Practice Midwife
DX: R92.2 Inconclusive mammogram (principal)
CPT/HCPCS: 76642; 77061; 77065

== ENCOUNTER 2022-10-25 06:00 | Emergency (ER) | payer OTHER, SELFPAY ==
--- NOTE | ~2022-10-25 | XR_ITS ---
EXAMINATION: XR CHEST CLINICAL INFORMATION: Shortness of breath. Cough COMPARISON: January 01, 2010 TECHNIQUE: AP portable view of the chest was obtained. FINDINGS: No significant abnormality is noted involving the heart, lungs, mediastinum, bony thorax or soft tissues. XR/XR chest 1V IMPRESSION: No acute disease.
[2022-10-25 06:02] VITALS: BP 126/78; PULSE 72; RESP 20; TEMP 37.4; O2SAT 99; BMI 24.4
[2022-10-25] MEDS: Ondansetron ODT 4 MG TAB.RAPDIS TRANSLINGU (06:18)
[2022-10-25 06:55] LABS: Influenza A PCR POSITIVE (Negative); Influenza B PCR NEGATIVE (Negative); Resp Syncy Virus RNA Qual PCR NEGATIVE (Negative); SARS COV2 PCR INHOUSE NEGATIVE (Negative)
--- NOTE | 2022-10-25 07:55 | ED.URI ---
HPI - URI/Sore Throat General Chief Complaint: Upper Respiratory Symptoms Stated Complaint: cough, hard to talk Time Seen by Provider: 10/25/22 07:27 Source: patient Mode of arrival: ambulatory History of Present Illness HPI Narrative: 41-year-old female with past medical history of depression presents to the ED with multiple symptoms including fatigue, headache, nausea, vomiting, cough and fever. Going on for approximately 2 days, And worsening. MD elicited complaint: fever, cough, sore throat, rhinorrhea and nasal congestion Onset (ago): day(s) Consistency: constant and progressively worsening Severity: severe Exacerbating factors: nothing Relieving factors: nothing Treatments prior to arrival: cold medicine Related Data Home Medications Medication Instructions Recorded Confirmed spironolactone 100 mg tablet 100 mg PO BID 09/11/21 04/14/22 multivitamin with minerals 1 tab PO DAILY 10/02/21 04/14/22 (Hair,Skin and Nails tablet) vitamin B complex (B 1 tab PO DAILY 04/14/22 04/14/22 Complex-Vitamin B12 tablet) Saccharomyces boulardii 250 mg 5,000 mmu cells PO DAILY 08/24/22 capsule (Daily Probiotic (S. boulardii)) evening primerose PO 08/24/22 turmeric 400 mg capsule mg PO 08/24/22 Previous Rx's Medication Instructions Recorded loratadine 10 mg tablet 10 mg PO DAILY PRN allergy 10/20/21 symptoms 90 days #90 tabs acyclovir 5 % topical ointment 1 appl topical 6XD 7 days #5 grams 08/24/22 (Zovirax) Allergies Allergy/AdvReac Type Severity Reaction Status Date / Time sulfadiazine Allergy Unknown unknown Verified 08/24/22 09:06 Review of Systems Constitutional: Constitutional: Reports chills, Reports fever(s) and Reports headache(s) Eyes: Eyes: Reports blurry vision and Reports diplopia ENT: Reports dizziness, Reports headache(s), Reports nasal congestion and Reports sore throat Cardiovascular: Cardiovascular: Denies chest pain and Denies palpitations Respiratory: Respiratory: Reports chest congestion and Reports cough Gastrointestinal: Gastrointestinal: Reports diarrhea, Reports nausea and Reports vomiting Genitourinary: Genitourinary: Reports no additional female genitourinary complaints Musculoskeletal: Musculoskeletal: Reports myalgias and Reports muscle weakness Integumentary/Breasts: Skin/Breast: Reports system reviewed and no additional complaints, except as docu Neurologic: Reports dizziness and Reports headache(s) Endocrine: Endocrine: Denies palpitations PMFSH Past Medical History Medical History Depression Headache Herpes PCOS (polycystic ovarian syndrome) Surgical History No pertinent past surgical history Family History Family History Father Medical history unknown Mother Stroke Diabetes CVD (cardiovascular disease) Other Substance abuse Social History Social History Housing: Apartment Alcohol intake: current Alcohol intake frequency: does not drink Patient Tobacco Use Status: Never used Tobacco Smoked in Last 30 Days: No e-Cigarette/Vaping Use: Never Used Second Hand Smoke Exposure: No Use of substances other than those prescribed or required for medical reasons: Yes Substance Use Type: Marijuana Advance Directives: No Advance Directives Information Provided: No service: No Current occupational status: employed Gender identity: Female Cognitive needs: No Hearing needs: No Vision needs: Yes (glasses) Physical Exam Vital Signs: Vital Signs: Last Vital Signs Temp 100.0 F 10/25/22 09:17 Pulse 82 10/25/22 09:17 Resp 18 10/25/22 09:17 BP 106/62 10/25/22 09:17 Pulse Ox 98 10/25/22 09:17 O2 Del Method 10/25/22 09:17 BMI result Body Mass Index 24.4 Vital signs normal except low-grade fever of 99.3 Const: General: cooperative and tired appearing Nutritional Appearance: average body habitus Orientation/consciousness: patient oriented x3 HEENT: Head: Yes normal to inspection, Yes normocephalic and Yes atraumatic Ears: external ears normal General nose exam: Normal external nose present Face and sinus: Yes normal facial exam Mouth: Normal oral and palatal mucosa present Eyes: Conjunctivae: conjunctivae normal Sclerae: sclerae normal Pupils: Equal, round and reactive pupils present EOM: EOMs intact bilaterally Neck: Neck: Yes normal visual inspection and Yes full ROM Resp: Effort & Inspection: normal respiratory effort and no cough Auscultation: clear to auscultation bilaterally Cardio: Rate: regular rate Rhythm: regular rhythm GI: Inspection: Yes normal to inspection Palpation (GI): Tenderness to palpation present (GI) other ( generalized mild) Back/Spine/Pelvis: Cervical Spine: normal cervical lordosis and cervical ROM normal Skin: General skin exam: no rashes or lesions noted and no mottling Neuro: General: patient oriented x3 and absent sensation to monofilament Cranial nerves: Yes Equal, round and reactive pupils present Psych: Appearance: grossly normal Speech and movement: Slowed speech present (Psych) Affect: Indifferent affect present Medications Administered Discontinued Medications Generic Name Dose Route Start Last Admin Trade Name Shivq PRN Reason Stop Dose Admin Acetaminophen 650 mg 10/25/22 07:59 10/25/22 08:09 Acetaminophen 325 Mg Tablet PO 10/25/22 08:00 650 mg ONCE ONE Administration Sodium Chloride 1,000 mls @ 1,000 mls/hr 10/25/22 07:40 10/25/22 10:05 Ns IV 10/25/22 08:39 Infused .Q1H ONE Infusion Ondansetron HCl 4 mg 10/25/22 06:11 10/25/22 06:18 Ondansetron Odt 4 Mg Tab.Rapdis TRANSLINGU 10/25/22 06:12 4 mg ONCE ONE Administration Ondansetron HCl 4 mg 10/25/22 07:40 10/25/22 08:04 Ondansetron Hcl 4 Mg/2 Ml Vial IVPUSH 10/25/22 07:41 4 mg ONCE ONE Administration MDM - URI/Sore Throat MDM Narrative Medical decision making narrative: 41-year-old female with upper respiratory symptoms. Positive flu A. Received IV fluids, Tylenol and Zofran here in the emergency room. Chest x-ray revealed no acute findings. patient to be discharged home with nausea medication and follow up with her primary care doctor tomorrow Medical Records Attestation: I reviewed the patient's medical records. Lab Data Attestation: I reviewed the patient's lab results. Lab results narrative: notables include a positive flu a test Result diagrams: 10/25/22 08:30 10/25/22 08:30 Labs: Lab Results 10/25/22 10/25/22 10/25/22 Range/Units 06:14 08:30 08:30 WBC 8.0 (4.8-10.8) X10*3/uL RBC 4.72 (4.20-5.50) X10*6/uL Hgb 13.8 (12.0-16.0) g/dl Hct 41.9 (37.0-47.0) % MCV 88.8 (80.0-98.0) fL MCH 29.2 (27.0-33.0) pg MCHC 32.9 (31.0-35.0) g/dl RDW 12.2 (11.0-16.0) % Plt Count 317 (160-400) X10*3/uL MPV 8.9 L (9.4-12.3) fL Immature Gran % (Auto) 0.5 H (0.0-0.4) % Neut % (Auto) 92.5 H (45-73) % Lymph % (Auto) 2.3 L (20-40) % [place] % (Auto) 4.4 (2-11) % Eos % (Auto) 0.0 (0-4) % Baso % (Auto) 0.3 (0-2) % Lymph # (Auto) 0.2 L (1.2-4.9) X10*3/uL [place] # (Auto) 0.4 (0.1-1.2) X10*3/uL Eos # (Auto) 0.0 (0.0-0.4) X10*3/uL Baso # (Auto) 0.0 (0.0-0.2) X10*3/uL Abs Immat Gran (auto) 0.04 H (0.00-0.03) X10*3/uL Absolute Neuts (auto) 7.4 (2.0-8.3) x10*3/uL Absolute Nucleated RBC 0.000 (0.0-0.012) X10*3/uL Nucleated RBC % (auto) 0.0 (0.0-0.2) /100WBC Smear Tech's Comments VERIFIED Sodium 134 L (135-145) mmol/L Potassium 4.2 (3.3-5.1) mmol/L Chloride 105 (96-108) mmol/L Carbon Dioxide 26 (22-29) mmol/L Anion Gap 7 L (12-20) BUN 12 (9-16) mg/dL Creatinine 0.73 (0.5-1.4) mg/dL Estim Creat Clear Calc 87.6 Estimated GFR > 60 Random Glucose 123 H (60-115) mg/dL Calcium 9.0 (8.4-10.2) mg/dL Influenza Type A (PCR) POSITIVE A (Negative) Influenza Type B (PCR) NEGATIVE (Negative) RSV RNA Qual (PCR) NEGATIVE (Negative) SARS-CoV-2 RNA (RT-PCR) NEGATIVE (Negative) Imaging Data Chest x-ray: Radiologist's impression: No acute findings Discharge Plan Discharge Clinical Impression: Type A influenza Patient Disposition: Home, Self-Care Instructions: Influenza (ED) Additional Instructions: May take tylenol or ibuprofen as needed for fever, aches, pain. You will gradually feel better over the next several days. You should call your primary care doctor tomorrow for follow up. Prescriptions: No Action loratadine 10 mg tablet 10 mg PO DAILY PRN (Reason: allergy symptoms) 90 Days Qty: 90 1RF spironolactone 100 mg tablet 100 mg PO BID multivitamin with minerals [Hair,Skin and Nails] Tablet 1 tab PO DAILY vitamin B complex [B Complex-Vitamin B12] Tablet 1 tab PO DAILY turmeric 400 mg capsule PO evening primerose PO Saccharomyces boulardii [Daily Probiotic (S. boulardii)] 250 mg capsule 5,000 mmu cells PO DAILY acyclovir [Zovirax] 5 % ointment 1 appl topical 6XD 7 Days Qty: 5 0RF
[2022-10-25 07:57] VITALS: BP 118/68; PULSE 85; RESP 20; TEMP 38.8; O2SAT 100
[2022-10-25] MEDS: ondansetron HCL 4 MG/2 ML VIAL IVPUSH (08:04)
[2022-10-25] MEDS: 0.9 % Sodium Chloride 1,000 ML 1000 ML IV (08:05)
[2022-10-25] MEDS: Acetaminophen 325 MG TABLET 650 MG PO (08:09)
[2022-10-25 08:35] LABS: Basophils Percent Auto 0.3 % (0-2); Hematocrit 41.9 % (37.0-47.0); Hemoglobin 13.8 g/dl (12.0-16.0); Imm Gran Abs Auto 0.04 X10*3/uL (0.00-0.03); Imm Gran Pct Auto 0.5 % (0.0-0.4); Lymphocytes Absolute Auto 0.2 X10*3/uL (1.2-4.9); Lymphocytes Percent Auto 2.3 % (20-40); MANUAL DIFF FLAG SCAN; Mean Corpuscular HGB Conc 32.9 g/dl (31.0-35.0); Mean Corpuscular Hemoglobin 29.2 pg (27.0-33.0); Mean Corpuscular Volume 88.8 fL (80.0-98.0); Mean Platelet Volume 8.9 fL (9.4-12.3); Monocytes Absolute Auto 0.4 X10*3/uL (0.1-1.2); Monocytes Percent Auto 4.4 % (2-11); Neutrophils Absolute Auto 7.4 x10*3/uL (2.0-8.3); Neutrophils Percent Auto 92.5 % (45-73); Platelet Count 317 X10*3/uL (160-400); Red Blood Count 4.72 X10*6/uL (4.20-5.50); Red Cell Distribution Width 12.2 % (11.0-16.0); SCAN SMEAR FLAG 1
[2022-10-25 08:52] LABS: SLIDE REVIEW VERIFIED
[2022-10-25 09:17] VITALS: BP 106/62; PULSE 82; RESP 18; TEMP 37.8; O2SAT 98
[2022-10-25 09:45] LABS: Anion Gap 7 (12-20); Blood Urea Nitrogen 12 mg/dL (9-16); Carbon Dioxide 26 mmol/L (22-29); Chloride 105 mmol/L (96-108); Creatinine Clr Calc Pharmacy 87.6; Estimated Glomerular Filt Rate > 60; Glucose Random 123 mg/dL (60-115); Potassium 4.2 mmol/L (3.3-5.1); Sodium 134 mmol/L (135-145)
[2022-10-25 11:51] VITALS: BP 115/76; PULSE 88; RESP 17; O2SAT 98
== END 2022-10-25 11:52 | disposition home or self-care (01) ==
PROVIDERS: Emergency Provider Emergency Medicine
DX: J10.1 Influenza due to other identified influenza virus with other respiratory manifestations (principal); R05.9 Cough, unspecified; Z20.822 Contact with and (suspected) exposure to COVID-19; Z79.899 Other long term (current) drug therapy
CPT/HCPCS: 0241U; 36415; 71045; 80048; 85025; 96361; 96374; 99284; J2405

== ENCOUNTER 2023-05-25 06:34 | Emergency (ER) | payer OTHER, SELFPAY ==
[2023-05-25 06:40] VITALS: BP 103/64; PULSE 73; RESP 16; TEMP 36.8; O2SAT 97; BMI 25.7
[2023-05-25 07:33] VITALS: BP 106/65; PULSE 71; RESP 18; TEMP 36.5; O2SAT 100
--- NOTE | 2023-05-25 08:03 | ED.GENADULT ---
HPI - General Adult General Chief complaint: General Medical Stated complaint: ?Vaginitis Time Seen by Provider: 05/25/23 08:00 Source: patient Mode of arrival: ambulatory Limitations: no limitations History of Present Illness HPI narrative: 42 yo female with history of depression, PCOS, allergic rhinitis who presents to the ER for evaluation of vaginal discharge, redness and pain for the last 3 days. She states she developed white vaginal discharge and discomfort 3 days ago, thought it was a yeast infection and treated it with OTC Monistat. The pain improved but the discharge persisted. She reports some ongoing swelling, red, raw skin and discomfort. No pain or burning with urination, fever, chills, N/V/D or abdominal pain. She endoses some low back back pain but denies flank pain. Sexually active with her boyfriend only. LMP 04/29/23. complaint: vaginal discharge and pain Onset (ago): day(s) (3) Location: genitals Radiation: back Severity: moderate Quality: burning and aching Pain Consistency: other (improving) Relieving factors: medication Exacerbating factors: none Associated symptoms: denies other symptoms Related Data Home Medications Medication Instructions Recorded Confirmed multivitamin with minerals 1 tab PO DAILY 10/02/21 04/25/23 (Hair,Skin and Nails tablet) vitamin B complex (B 1 tab PO DAILY 04/14/22 04/25/23 Complex-Vitamin B12 tablet) Saccharomyces boulardii 250 mg 5,000 mmu cells PO DAILY 08/24/22 04/25/23 capsule (Daily Probiotic (S. boulardii)) evening primerose PO 08/24/22 04/25/23 Previous Rx's Medication Instructions Recorded loratadine 10 mg tablet 10 mg PO DAILY PRN allergy 10/20/21 symptoms 90 days #90 tabs fluconazole 150 mg tablet 150 mg PO ONCE #1 tab 05/25/23 (Diflucan) Allergies Allergy/AdvReac Type Severity Reaction Status Date / Time sulfadiazine Allergy Unknown unknown Verified 04/25/23 23:43 Review of Systems Review of Systems: Yes all other systems are reviewed and are negative PMFSH Past Medical History Medical History Depression Headache Herpes PCOS (polycystic ovarian syndrome) Surgical History No pertinent past surgical history Family History Family History Father Medical history unknown Mother Stroke Diabetes CVD (cardiovascular disease) Other Substance abuse Social History Social History Housing: Apartment Alcohol intake: never Patient Tobacco Use Status: Never used Tobacco Smoked in Last 30 Days: Yes e-Cigarette/Vaping Use: Never Used Second Hand Smoke Exposure: No Use of substances other than those prescribed or required for medical reasons: No Substance Use Type: Marijuana Advance Directives: No Advance Directives Information Provided: Yes Patient : No service: No Current occupational status: employed Gender identity: Female Cognitive needs: No Hearing needs: No Vision needs: Yes (glasses) Physical Exam ED Vital Signs: Vital Signs - 24 hr 05/25/23 06:40 05/25/23 07:33 Temperature 98.2 F 97.7 F Pulse Rate 73 71 Respiratory Rate 16 18 Blood Pressure 103/64 106/65 Pulse Oximetry 97 100 Oxygen Delivery Method Room Air Room Air BMI result Body Mass Index 25.7 Appearance: Alert. Oriented X3. No acute distress. Head: normocephalic, atraumatic. Eyes: Pupils equal, round and reactive to light. ENT: Pharynx normal. No tonsillar swelling or exudate. Neck: Normal inspection. Neck supple. CVS: Normal heart rate and rhythm. Pulses normal. Respiratory: No respiratory distress. Breath sounds normal. Abdomen: Soft and nontender. +BS x4 Pelvic: normal external inspection. vaginal introitus with erythematous, raw, tender mucosa. there is moderate white, thick discharge in the vaginal canal. normal appearing cervix. no CMT. Skin: Skin warm and dry. Normal skin color. Normal skin turgor. No rashes. Extremities: No lower extremity edema. No joint swelling. Neuro/psych: Oriented X 3. No motor deficit. No sensory deficit. CN II-XII intact. Normal speech and cognition. Medications Administered Discontinued Medications Generic Name Dose Route Start Last Admin Trade Name Freq PRN Reason Stop Dose Admin Fluconazole 150 mg 05/25/23 08:48 05/25/23 08:59 Fluconazole 150 Mg Tablet PO 05/25/23 08:49 150 mg ONCE ONE Administration Medical Decision Making Medical Decision Making [facility] Narrative: 42 yo female presenting with 3 days of white vaginal discharge and vaginal redness and pain. Some improvement with Monistat but discharge persists. Her Monistat was a 1 day treatment. Her exam is c/w vaginal yeast infection, likely only partially treated with the monistat. given diflucan in the ER. CT/NG, BV, trich swabs sent. will defer empiric treatment given exam findings and plan to call her if anything else comes back positive. UA negative for infection and . Patient stable for d/c home - 1 additional diflucan sent to the pharmacy to take in 3 days. Differential Diagnosis Differential Diagnoses: The differential diagnosis associated with the presentation includes yeast infection, Gonorrhea, Chlamydia, BV, trichomonas, PID Lab Data [facility] Lab Attestation statement: I reviewed the patient's lab results. not c/w uti Labs: Lab Results 05/25/23 05/25/23 Range/Units 08:52 08:52 Urine Color Yellow Urine Appearance Clear Urine pH 8.0 (5.0-9.0) Ur Specific [place] 1.025 (1.005-1.025) Urine Protein Negative (Neg-Trace) mg/dL Urine Glucose (UA) Negative (Negative) mg/dL Urine Ketones Negative (Negative) mg/dL Urine Blood Negative (Negative) Urine Nitrite Negative (Negative) Ur Leukocyte Esterase Small (1+) H (Negative) Urine Test NEGATIVE (NEGATIVE) External Record Review External record reviewed: Prior outpatient labs Prescription Management I considered prescription management with: Pain Medication and Antibiotic Critical Care Time Critical Care Time Critical Care Time: No Discharge Plan Discharge Clinical Impression: Vaginal yeast infection Patient Disposition: Home, Self-Care Instructions: Yeast Infection (ED) Additional Instructions: Your exam today was consistent with a yeast infection. You were given a dose of an antifungal medication. Take dose #2 in 3 days to complete treatment. If any of your other tests come back positive, we will call you. If you develop new or worsening symptoms call 911 or come back to the ER for further evaluation. Prescriptions: New fluconazole [Diflucan] 150 mg tablet 150 mg PO ONCE Qty: 1 0RF No Action loratadine 10 mg tablet 10 mg PO DAILY PRN (Reason: allergy symptoms) 90 Days Qty: 90 1RF multivitamin with minerals [Hair,Skin and Nails] Tablet 1 tab PO DAILY vitamin B complex [B Complex-Vitamin B12] Tablet 1 tab PO DAILY evening primerose PO Saccharomyces boulardii [Daily Probiotic (S. boulardii)] 250 mg capsule 5,000 mmu cells PO DAILY
[2023-05-25 09:31] VITALS: BP 105/57; PULSE 74; RESP 17; TEMP 37; O2SAT 95
== END 2023-05-25 09:37 | disposition home or self-care (01) ==
PROVIDERS: Emergency Provider Emergency Medicine Emergency Medical Services; PCP Internal Medicine
DX: B37.89 Other sites of candidiasis (principal); N89.8 Other specified noninflammatory disorders of vagina; R10.2 Pelvic and perineal pain; E28.2 Polycystic ovarian syndrome
CPT/HCPCS: 0353U; 81001; 81025; 87086; 87480; 87510; 87660; 99283; 99284

== ENCOUNTER 2024-03-28 16:05 | Outpatient (REF) | payer OTHER, SELFPAY ==
[2024-03-28 18:34] LABS: HCG Quantitative < 2 mIU/mL
== END 2024-03-28 16:06 | disposition home or self-care (01) ==
LOC: HO.LAB 16:05
PROVIDERS: PCP Internal Medicine; Visit Provider Internal Medicine
DX: R11.2 Nausea with vomiting, unspecified (principal); N91.1 Secondary amenorrhea
CPT/HCPCS: 36415; 84702

== ENCOUNTER 2024-04-25 16:01 | Outpatient (AMB) | payer OTHER, SELFPAY ==
[2024-04-25 16:04] VITALS: BP 98/60; PULSE 72; O2SAT 98; BMI 24.2
--- NOTE | 2024-04-25 16:04 | MHC.PC.OV ---
Vital Signs 04/25/24 16:04 Height 5 ft 4 in Weight 141 lb BMI 24.2 BP 98/60 Blood Pressure Location Lt brachial Position Sitting Pulse 72 Pulse Source Pulse Oximeter Pulse Oximetry (%) 98 Oxygen Delivery Method Room Air Intake Visit Reasons: pe Improvement Director Required: No Statistical Programmer: Not Required per policy Accompanied by: Self / Same As Patient Allergies sulfadiazine Allergy (Unknown, Verified 04/25/24 16:54) unknown Medication List - Last Reconciled 04/25/24 by Fco Kern MD [evening primerose PO] spironolactone 100 mg PO DAILY Tobacco use date assessed: 04/25/24 Dental Screening Dental Screen Date: 04/25/24 Did you have a dental visit in the last 12 months?: Yes Did you have a dental problem in the last 6 months where you did not have access to dental care?: No Was dental information given to patient?: Patient has dentist HPI pe HPI Details Patient comes in today for her annual physical examination States that she feels okay She denies any headaches or dizziness Denies any chest pains, no SOB No nausea/vomiting, no abdominal pain No change in bowel habits noted Denies any acute urinary symptoms She is due for her annual mammogram - this was last done in April 2022 She is also due for her annual pap smear and gynecology exam and [facility] Medical History Herpes PCOS (polycystic ovarian syndrome) Depression Headache Surgical History No pertinent past surgical history Family History Father Medical history unknown Mother Stroke Diabetes CVD (cardiovascular disease) Other Substance abuse Social History Housing: Apartment Alcohol intake: never Patient Tobacco Use Status: Never used Tobacco e-Cigarette/Vaping Use: Never Used Second Hand Smoke Exposure: No Substance Use Type: Marijuana service: No Current occupational status: employed Gender identity: Female Cognitive needs: No Hearing needs: No Vision needs: Yes (glasses) Female Reproductive History Menstrual Age of Menarche: 11 Questionnaire PHQ-9 Over the last 2 weeks, how often have you been bothered by any of the following problems? 1. Little interest or pleasure in doing things: not at all 2. Feeling down, depressed, or hopeless: not at all 3. Trouble falling or staying asleep, or sleeping too much: several days 4. Feeling tired or having little energy: several days 5. Poor appetite or overeating: not at all 6. Feeling bad about yourself - or that you are a failure or have let yourself or your family down: not at all 7. Trouble concentrating on things, such as reading the newspaper or watching television: several days 8. Moving or speaking so slowly that other people could have noticed. Or the opposite - being so fidgety or restless that you have been moving around a lot more than usual: not at all 9. Thoughts that you would be better off or of hurting yourself in some way: not at all Total score: 3 Depression Screening Interpretation: Positive Depression Screening Follow-up: Existing condition and In treatment (is following up with therapist regularly) Depression Screening Done: Yes 39883 - PHQ-9 Billing: Yes Source: Developed by Drs. Ronald Street, Britney Klein, Kamar Rios and colleagues, with an educational macrina from [employer]. Thrive Questionnaire Date Thrive assessed: 04/25/24 I am a: Patient What is your living situation today?: I have a steady place to live Within the past 12 months, did the food you bought not last and you didn't have the money to get more?: Never true Within the past 12 months, did you worry whether your food would run out before you got money to buy more?: Never true Do you have trouble paying for medicines?: No Do you have trouble getting transportation to medical appointments?: No Do you have trouble paying your heating and electricity bill?: No Do you have trouble taking care of your child, family member or friend?: No Do you have trouble with day-to-day activities such as bathing, preparing meals, shopping, managing finances, etc.?: No Are you currently unemployed and looking for a job?: No Are you interested in more education?: No Please select the resources that you would like help with: None Currently or been in a relationship where the following occur: no concerns reported THRIVE Score: 0 AUDIT C Alcohol Use Questionnaire (AUDIT-C) 1. How often do you have a drink containing alcohol?: Monthly or less 2. How many drinks containing alcohol do you have on a typical day when you are drinking?: 1 or 2 3. How often do you have six or more drinks on one occasion?: Never Total Score: 1 Score Reviewed/Action Taken: Yes DINA-7 AMB Questionnaire DINA-7 Date DINA - 7 assessed: 04/25/24 Feeling nervous, anxious, or on edge: 2 = More than half the days Not being able to stop or control worryin = More than half the days Worrying too much about different things: 2 = More than half the days Trouble relaxin = Several days Being so restless that it is hard to sit still: 0 = Not at all Becoming easily annoyed or irritable: 2 = More than half the days Feeling afraid as if something awful might happen: 1 = Several days Total DINA-7 score (0-4 normal; 5-9 mild; 10-14 moderate; 15-21 severe): 10 Source: Developed by Drs. Ronald Street, Britney Klein, Kamar Rios and colleagues, with an educational macrina from [employer]. Review of Systems Const Denies chills, Denies fatigue, Denies fever(s), Denies headache(s) and Denies malaise Eyes Denies blurry vision, Denies change in vision, Denies irritation and Denies itchy eyes ENT Denies dysphagia, Denies dizziness, Denies otalgia, Denies headache(s), Denies nasal congestion, Denies neck pain, Denies odynophagia, Denies sinus pain and Denies sore throat Card Denies chest pain, Denies rapid heart rate, Denies irregular heart rhythm, Denies palpitations and Denies dyspnea Resp Denies chest congestion, Denies cough, Denies dyspnea and Denies wheezing GI Denies abdominal pain, Denies bloating, Denies constipation, Denies dysphagia, Denies heartburn, Denies diarrhea, Denies nausea, Denies odynophagia and Denies vomiting Denies hematuria, Denies urinary frequency, Denies dysuria, Denies urinary incontinence and Denies urinary urgency Musc Denies back pain, Denies arthralgias, Denies joint swelling, Denies muscle weakness and Denies neck pain Skin/Breast Denies breast pain, Denies breast mass, Denies change in pigmentation, Denies lesions, Denies rash and Denies unusual bruising Neuro Denies dizziness, Denies headache(s) and Denies paresthesias Psych Denies anxiety and Denies depression Endo Denies fatigue and Denies palpitations Perfecto/Lymph Denies easy bruising Aller/Immun Denies itchy eyes and Denies wheezing Physical exam (Primary Care) Vital Signs: Last Vital Signs Pulse 72 04/25/24 16:04 BP 98/60 04/25/24 16:04 Pulse Ox 98 04/25/24 16:04 Oxygen Delivery Method Room Air 04/25/24 16:04 BMI result Body Mass Index 24.2 Tobacco/Smoking Status: Tobacco use Status Tobacco use date assessed 04/25/24 04/25/24 16:06 Patient Tobacco Use Status Never used Tobacco 04/25/24 16:06 e-Cigarette/Vaping Use Never Used 04/25/24 16:06 PHQ-9: PHQ-9 Score PHQ-9: Total score 3 04/25/24 16:55 Depression Screening Interpretation: Positive Depression Screening Follow-up: Existing condition and In treatment (is following up with therapist regularly) Thrive Assessment: Date of Thrive Assessment Date Thrive assessed 04/25/24 04/25/24 16:06 Currently or been in a relationship where the following occur: no concerns reported Const General: no acute distress, alert and awake Orientation/consciousness: patient oriented x3 HENMT Head: Yes normocephalic and Yes atraumatic Ears: external ears normal, TM's normal bilaterally and EAC's normal General nose exam: No nasal discharge present Face and sinus: Yes normal facial exam and Yes sinuses nontender Teeth and gingiva: dentition normal Throat: Yes posterior oropharynx normal and Yes tonsils normal (no TP congestion) Eyes Eyelids: Yes eyelids normal Conjunctivae: conjunctivae normal Pupils: Equal, round and reactive pupils present EOM: EOMs intact bilaterally Neck Neck: Yes no lymphadenopathy and Yes supple Thyroid: Thyroid normal Resp Auscultation: clear to auscultation bilaterally, no rales and no wheezes Cardio Rate: regular rate Rhythm: regular rhythm Heart sounds: no murmurs GI Palpation (GI): Soft to palpation, nontender and No hepatosplenomegaly present Auscultation: normal bowel sounds General: Yes no CVA tenderness Back/Spine/Pelvis Back: no CVA tenderness Thoracic/Lumbar Spine: thoracic and lumbar spine normal to inspection Skin Lesions: no lesions Rashes: no rashes Neuro General: patient oriented x3, moves all extremities, no focal motor deficits and CN's II-XI intact bilaterally Cranial nerves: Yes Equal, round and reactive pupils present Cognition (Neuro): normal cognition Gait exam (Neuro): Normal gait present Extrem General: Yes no clubbing, cyanosis or edema Assessment and Plan Assessment & Plan (1) Annual physical exam: Code(s): Z00.00 - Encounter for general adult medical examination without abnormal findings Plan: Check labs [facility] smear and gynecology exam SARA (2) PCOS (polycystic ovarian syndrome): Code(s): E28.2 - Polycystic ovarian syndrome Plan: Continue Spironolactone 100 mg QD Follow up with gynecology as scheduled (3) Allergic rhinitis: Code(s): J30.9 - Allergic rhinitis, unspecified Qualifiers: Allergic rhinitis trigger: unspecified Allergic rhinitis seasonality: unspecified Qualified Code(s): J30.9 - Allergic rhinitis, unspecified Plan: Continue Loratadine 10 mg QD PRN (4) Hyperglycemia: Code(s): R73.9 - Hyperglycemia, unspecified Plan: Reinforced low calorie diet HgbA1c was normal at 5.3% when checked a couple of years ago - will repeat labs for follow up (5) Depression: Code(s): F32.9 - Major depressive disorder, single episode, unspecified Qualifiers: Depression Type: major depressive disorder Major depression recurrence: recurrent Active/Remission status: currently active Major depression episode severity: unspecified Qualified Code(s): F33.9 - Major depressive disorder, recurrent, unspecified Plan: She has tried taking a couple of unrecalled Rx for depression in the past but currently prefers not to take any Rx for now She still goes to therapy once a week - to continue following up with psychiatry as scheduled (6) Breast cancer screening by mammogram: Code(s): Z12.31 - Encounter for screening mammogram for malignant neoplasm of breast Plan: Will send patient for her annual mammogram Plan To return in 1 year for her next annual physical examination Orders: Orders Complete Blood Count Auto Diff 04/25/24 D64.9 - Anemia, unspecified, Z00.00 - Encounter for general adult medical examination without abnormal findings Comprehensive [place]. Panel Fast 04/25/24 E78.00 - Pure hypercholesterolemia, unspecified, Z00.00 - Encounter for general adult medical examination without abnormal findings UA CC w/rflx Micro + Cult 04/25/24 R30.0 - Dysuria, Z00.00 - Encounter for general adult medical examination without abnormal findings Vitamin D 25-OH Total 04/25/24 E55.9 - Vitamin D deficiency, unspecified, Z00.00 - Encounter for general adult medical examination without abnormal findings MM tomosynthesis screening BI 04/25/24 Z12.31 - Encounter for screening mammogram for malignant neoplasm of breast Lipid Panel 04/25/24 E78.00 - Pure hypercholesterolemia, unspecified, Z00.00 - Encounter for general adult medical examination without abnormal findings TSH reflex Free T4 04/25/24 E78.00 - Pure hypercholesterolemia, unspecified, Z00.00 - Encounter for general adult medical examination without abnormal findings Hemoglobin A1c 04/25/24 R73.9 - Hyperglycemia, unspecified Coding Level of Care Code Est Pt Prev Care 40-64y(65045) Diagnoses Annual physical exam Z00.00 PCOS (polycystic ovarian syndrome) E28.2 Allergic rhinitis, unspecified seasonality, unspecified trigger J30.9 Allergic rhinitis trigger: unspecified Allergic rhinitis seasonality: unspecified Hyperglycemia R73.9 Episode of recurrent major depressive disorder, unspecified depression episode severity F33.9 Depression Type: major depressive disorder Major depression recurrence: recurrent Active/Remission status: currently active Major depression episode severity: unspecified Breast cancer screening by mammogram [id number]
== END 2024-04-25 17:00 | disposition home or self-care (01) ==
PROVIDERS: PCP Internal Medicine; Visit Provider Internal Medicine
DX: Z00.00 Encounter for general adult medical examination without abnormal findings (principal); F33.9 Major depressive disorder, recurrent, unspecified; E28.2 Polycystic ovarian syndrome; J30.9 Allergic rhinitis, unspecified; R73.9 Hyperglycemia, unspecified; Z12.31 Encounter for screening mammogram for malignant neoplasm of breast
CPT/HCPCS: 99396

== ENCOUNTER 2024-04-29 07:06 | Outpatient (REF) | payer OTHER, SELFPAY ==
[2024-04-29 07:18] LABS: MANUAL DIFF FLAG NO
[2024-04-29 07:56] LABS: Basophils Absolute Auto 0.1 X10*3/uL (0.0-0.2); Basophils Percent Auto 0.8 % (0-2); Eosinophils Absolute Auto 0.2 X10*3/uL (0.0-0.4); Eosinophils Percent Auto 2.9 % (0-4); Hematocrit 40.6 % (37.0-47.0); Hemoglobin 13.3 g/dl (12.0-16.0); Imm Gran Abs Auto 0.02 X10*3/uL (0.00-0.03); Imm Gran Pct Auto 0.3 % (0.0-0.4); Lymphocytes Absolute Auto 1.7 X10*3/uL (1.2-4.9); Lymphocytes Percent Auto 28.9 % (20-40); Mean Corpuscular HGB Conc 32.8 g/dl (31.0-35.0); Mean Corpuscular Hemoglobin 29.8 pg (27.0-33.0); Mean Corpuscular Volume 90.8 fL (80.0-98.0); Mean Platelet Volume 10.3 fL (9.4-12.3); Monocytes Absolute Auto 0.4 X10*3/uL (0.1-1.2); Monocytes Percent Auto 5.9 % (2-11); Neutrophils Absolute Auto 3.6 x10*3/uL (2.0-8.3); Neutrophils Percent Auto 61.2 % (45-73); Platelet Count 302 X10*3/uL (160-400); Red Blood Count 4.47 X10*6/uL (4.20-5.50); White Blood Count 5.9 X10*3/uL (4.8-10.8)
[2024-04-29 07:56] LABS: Appearance Urine Clear; Color Urine Yellow; Glucose Urine UA Negative (Negative); Leukocyte Esterase Urine Negative (Negative); Nitrite Urine Negative (Negative); Specific Gravity - Urine 1.025 (1.005-1.025); UMIC TRIGGER UACC YES; Urine Blood Trace (Negative); Urine Ketones Negative (Negative); Urine Protein Negative (Neg-Trace)
[2024-04-29 08:18] LABS: Estimated Average Glucose 108 mg/dL; Hemoglobin A1c % 5.4 % (<6.0)
[2024-04-29 08:42] LABS: Alanine Aminotransferase 23 U/L (0-31); Albumin Level 3.9 g/dL (3.5-5.0); Alkaline Phosphatase 82 U/L (39-117); Anion Gap 11 (12-20); Aspartate Amino Transferase 21 U/L (5-31); Bilirubin Total 0.3 mg/dL (0.0-1.0); Blood Urea Nitrogen 14 mg/dL (9-16); Calcium 9.5 mg/dL (8.4-10.2); Carbon Dioxide 26 mmol/L (22-29); Chloride 107 mmol/L (96-108); Cholesterol 163 mg/dL (<200); Estimated Glomerular Filt Rate > 60; Glucose Fasting 90 mg/dL (60-99); HDL Cholesterol 51 mg/dL (>40); LDL Cholesterol Calculated 103 mg/dL (<100); Potassium 4.4 mmol/L (3.3-5.1); Sodium 140 mmol/L (135-145); Total Protein 6.4 g/dL (6.5-8.0); Triglycerides 48 mg/dL (<150)
[2024-04-29 08:51] LABS: RBC Urine 0-2 /HPF (0-2); WBC Urine 0-5 /HPF (0-5)
[2024-04-29 08:52] LABS: Bacteria Urine None Seen (None Seen); Hyaline Casts Urine 0-2 /LPF (0-2); Squamous Epithelial Cell Urine 0-2 /HPF (0-2)
[2024-04-29 08:59] LABS: TSH reflex Free T4 1.32 uIU/mL (0.32-4.0); Vitamin D 25-OH Total 35.2 ng/mL (>30)
== END 2024-04-29 07:07 | disposition home or self-care (01) ==
LOC: HO.LAB 07:06
PROVIDERS: PCP Internal Medicine; Visit Provider Internal Medicine
DX: Z00.00 Encounter for general adult medical examination without abnormal findings (principal); D64.9 Anemia, unspecified; E78.00 Pure hypercholesterolemia, unspecified; E55.9 Vitamin D deficiency, unspecified; R73.9 Hyperglycemia, unspecified
CPT/HCPCS: 36415; 80053; 80061; 81001; 81003; 82306; 83036; 84443; 85025

== ENCOUNTER 2024-05-31 15:12 | Outpatient (REF) | payer OTHER, SELFPAY ==
--- NOTE | ~2024-05-31 | MM_ITS ---
EXAMINATION: MM SCREENING DIGITAL BREAST TOMOSYNTHESIS, BILATERAL CLINICAL INFORMATION: Screening. Asymptomatic. COMPARISON: Mammography: This study is compared with prior exams dating back to 2020. TECHNIQUE: Digital breast tomosynthesis is performed in both the craniocaudal and mediolateral oblique views along with computer-aided detection (CAD). Synthesized 2D images are generated from the tomosynthesis. FINDINGS: The breasts are heterogeneously dense, which may obscure small masses (ACR BI-RADS breast composition Category c). There are no significant masses, abnormal calcifications, or other abnormalities. MM/MM tomosynthesis screening BI IMPRESSION: No mammographic evidence of malignancy. ASSESSMENT: BI-RADS BI-RADS 1 - Negative RECOMMENDATION: Routine annual mammography screening. 1 year F/U This examination should not preclude the clinical evaluation of a suspicious palpable abnormality. This patient's information was entered into a reminder system with a target due date for their next mammogram.
== END 2024-05-31 15:13 | disposition home or self-care (01) ==
LOC: HO.MAMMO 15:12
PROVIDERS: PCP Internal Medicine; Visit Provider Internal Medicine
DX: Z12.31 Encounter for screening mammogram for malignant neoplasm of breast (principal)
CPT/HCPCS: 77063; 77067

== ENCOUNTER → 2024-05-31 15:15 | Outpatient (BNV) | payer OTHER, SELFPAY | PROVIDERS: PCP Internal Medicine; Visit Provider Radiology Diagnostic Radiology | DX: Z12.31 Encounter for screening mammogram for malignant neoplasm of breast (principal) | CPT/HCPCS: 77063; 77067 ==

== ENCOUNTER 2024-07-03 13:58 | Outpatient (AMB) | payer OTHER, SELFPAY ==
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
[2024-07-03 14:01] VITALS: BP 104/80; PULSE 65; TEMP 36.8; O2SAT 99; BMI 24.7
== END 2024-07-03 14:33 | disposition home or self-care (01) ==
PROVIDERS: PCP Internal Medicine; Visit Provider Registered Nurse
DX: S00.33XA Contusion of nose, initial encounter (principal)
CPT/HCPCS: 99213

== ENCOUNTER 2024-07-05 01:50 | Emergency (ER) | payer OTHER, SELFPAY ==
--- NOTE | ~2024-07-05 | XR_ITS ---
EXAMINATION: XR FOOT, RIGHT CLINICAL INFORMATION: Injury. Pain. COMPARISON: None available. TECHNIQUE: AP, lateral, and oblique views of the right foot. FINDINGS: The bones and soft tissues are normal. No fracture. Alignment is anatomic. Joint spaces are maintained. XR/XR foot RT 2V IMPRESSION: No significant abnormality identified.
[2024-07-05 01:53] VITALS: BP 105/58; PULSE 59; RESP 20; TEMP 36.1; O2SAT 97; BMI 24.5
--- NOTE | 2024-07-05 04:42 | ED.EXTPRO ---
HPI - Extremity Problem General Chief complaint: Extremity Injury, Upper Stated complaint: right toe broken? Time Seen by Provider: 07/05/24 04:42 History of Present Illness ED Provider: Stella MUNSON Narrative: The patient is a 43-year-old female who injured her right small toe when she stubbed it against a crate. She had a lot of pain and came to the emergency room. Related Data Home Medications ?Medication ?Instructions ?Recorded ?Confirmed spironolactone 100 mg tablet 100 mg PO DAILY 04/25/24 04/25/24 calcium carbonate 500 mg PO DAILY 07/03/24 Allergies Allergy/AdvReac Type Severity Reaction Status Date / Time sulfadiazine Allergy Unknown unknown Verified 07/05/24 01:56 Review of Systems Review of Systems: Yes all other systems are reviewed and are negative [facility] Past Medical History Medical History Herpes PCOS (polycystic ovarian syndrome) Depression Headache Surgical History No pertinent past surgical history Family History Family History Father Medical history unknown Mother Stroke Diabetes CVD (cardiovascular disease) Other Substance abuse Social History Social History Housing: Apartment Alcohol intake: never Patient Tobacco Use Status: Never used Tobacco e-Cigarette/Vaping Use: Never Used Second Hand Smoke Exposure: No Substance Use Type: Marijuana Advance Directives: No Advance Directives Information Provided: Yes Do you have a plan to hurt others: No Plan service: No Current occupational status: employed Gender identity: Female Cognitive needs: No Hearing needs: No Vision needs: Yes (glasses) Physical Exam Vital Signs: Vital Signs: Last Vital Signs Temp 97.0 F 07/05/24 05:16 Pulse 59 07/05/24 05:16 Resp 20 07/05/24 05:16 BP 105/58 L 07/05/24 05:16 Pulse Ox 97 07/05/24 05:16 O2 Del Method Room Air 07/05/24 05:16 BMI result Body Mass Index 24.5 Const: Other: The patient was sleeping when I entered the room. She woke to a normal mental status. She seemed to have a lot of discomfort in the right small toe HEENT: Other: Face is unremarkable Eyes: Other: Pupils are round equal, conjunctivae are clear, extraocular movements intact Resp: Effort & Inspection: normal respiratory effort Skin: Other: The skin of the toes is normal. Specifically the skin of the right small toe is normal without bruising or subungual hematoma Neuro: Other: The patient is awake and alert with a normal mental status. Intact sensation in the toes and feet. Extrem: Other: The right small toe seemed to possibly slightly externally deviated but this is a very subtle finding. The toe was very tender to the touch. No gross deformity. Skin intact. Good cap refill. Good dorsalis pedis pulse in the foot. Medical Decision Making Medical Decision Making MDM Narrative: The patient came to the emergency room for evaluation of a right small toe injury. X-ray shows no definite fracture. Clinically the patient had a great deal of tenderness and I suppose an occult fracture might be a possibility. The toe was tatianna-taped to its neighboring toes. Patient was given a postop shoe. The patient will be given a work note. The patient will be advised to keep the foot elevated to help reduce pain and swelling. Discharge Plan Discharge Clinical Impression: Contusion of fifth toe of right foot Patient Disposition: Home, Self-Care Additional Instructions: Please keep your pinky toe taped to the neighboring toes to help keep it straight. Use the postop shoe if you find that it helps with comfort when walking around. Elevate the foot often. Ibuprofen and acetaminophen as needed for pain. Follow up with your regular doctor if not improving. Return to the emergency room if significantly worse. Prescriptions: No Action calcium carbonate 500 mg calcium (1,250 mg) tablet 500 mg PO DAILY spironolactone 100 mg tablet 100 mg PO DAILY Referrals: Fco Kern MD [Primary Care Provider] - (Right 5th toe contusion) Stand Alone Forms: Work/School Release Interventions: ED Discharge Assessment Last Done: 07/05/24 05:16 Discharge Date/Time: 07/05/24 05:18 Print Language: Swedish
[2024-07-05 05:16] VITALS: BP 105/58; PULSE 59; RESP 20; TEMP 36.1; O2SAT 97
== END 2024-07-05 05:18 | disposition home or self-care (01) ==
PROVIDERS: Emergency Provider Emergency Medicine; PCP Internal Medicine
DX: S90.121A Contusion of right lesser toe(s) without damage to nail, initial encounter (principal); M79.674 Pain in right toe(s); Y29.XXXA Contact with blunt object, undetermined intent, initial encounter; Y93.01 Activity, walking, marching and hiking; Y92.89 Other specified places as the place of occurrence of the external cause; Y99.8 Other external cause status; Z79.899 Other long term (current) drug therapy
CPT/HCPCS: 73620; 99282; 99283

== ENCOUNTER 2024-08-25 09:38 | Outpatient (AMB) | payer OTHER, SELFPAY ==
--- NOTE | 2024-08-25 10:00 | AM.OFFWIN_ITS ---
Intake Vital Signs 3 08/25/24 10:01 Height 5 ft 4 in Weight 140 lb BMI 24.0 BP 110/60 Blood Pressure Location Rt brachial Position Sitting Pulse 61 Pulse Source Pulse Oximeter Pulse Oximetry (%) 96 Oxygen Delivery Method Room Air Intake Visit Reasons: EP Allergy reaction to mosquito bite Intake Note: Patient here for mosquito bite on left hand that she woke up today with swelling and pain that radiates to the wrist. Patient Tobacco Use Status: Never used Tobacco Allergies sulfadiazine Allergy (Unknown, Verified 08/25/24 10:03) unknown Medication List - Last Reconciled 08/25/24 by Tarun DaS ilva MD calcium carbonate 500 mg PO DAILY spironolactone 100 mg PO DAILY Do you need a note to return to daycare/school/sports/work: Yes HPI EP Allergy reaction to mosquito bite 2 HPI0 Details Patient is a 43-year-old female came in today to be evaluated for possible reaction to insect bite Patient says that she feels she is allergic to mosquitos She was cleaning her basement the screen door was open yesterday She did see mosquito flying there Later that day she started having swelling of her left hand And this morning felt discomfort moving her wrist so came in She did take ibuprofen Benadryl and has been applying ice since yesterday On examination she has to bites with local swelling She is able to move her wrist completely There is no sign of infection I am treating her with prednisone 20 mg once a day with food for 5 days She may continue with the Benadryl and ice locally. PFSH Medical History Herpes PCOS (polycystic ovarian syndrome) Depression Headache Surgical History No pertinent past surgical history Family History Father Medical history unknown Mother Stroke Diabetes CVD (cardiovascular disease) Other Substance abuse Social History Housing: Apartment Alcohol intake: never Patient Tobacco Use Status: Never used Tobacco e-Cigarette/Vaping Use: Never Used Second Hand Smoke Exposure: No Substance Use Type: Marijuana service: No Current occupational status: employed Gender identity: Female Cognitive needs: No Hearing needs: No Vision needs: Yes (glasses) Female Reproductive History Menstrual Age of Menarche: 11 Review of Systems Const All systems reviewed & are unremarkable except as noted in HPI and below Physical Exam Vital Signs: Last Vital Signs Pulse 61 08/25/24 10:01 BP 110/60 08/25/24 10:01 Pulse Ox 96 08/25/24 10:01 Oxygen Delivery Method Room Air 08/25/24 10:01 BMI result Body Mass Index 24.0 Const General: no acute distress Orientation/consciousness: patient oriented x3 Eyes General: appearance normal, both eyes and all related structures Resp Effort & Inspection: normal respiratory effort and able to speak in complete sentences Skin Full body images: 2 1. Local swelling with mild redness 2. Similar looking area on the forearm, wrist with full range of motion, fingers mobile, sensory vascular intact Neuro General: patient oriented x3 Psych Mental Status: mental status grossly normal Assessment & Plan Assessment & Plan (1) Insect bite of hand with local reaction: Code(s): S60.569A - Insect bite (nonvenomous) of unspecified hand, initial encounter; W57.XXXA - Bitten or stung by nonvenomous insect and other nonvenomous arthropods, initial encounter Qualifiers: Encounter type: initial encounter Laterality: left Qualified Code(s): S60.562A - Insect bite (nonvenomous) of left hand, initial encounter; W57.XXXA - Bitten or stung by nonvenomous insect and other nonvenomous arthropods, initial encounter Plan Patient is a 43-year-old female came in today to be evaluated for possible reaction to insect bite Patient says that she feels she is allergic to mosquitos She was cleaning her basement the screen door was open yesterday She did see mosquito flying there Later that day she started having swelling of her left hand And this morning felt discomfort moving her wrist so came in She did take ibuprofen Benadryl and has been applying ice since yesterday On examination she has to bites with local swelling She is able to move her wrist completely There is no sign of infection I am treating her with prednisone 20 mg once a day with food for 5 days She may continue with the Benadryl and ice locally. Medications: New 2 prednisone 20 mg PO DAILY 5 tabs 0RF 5 days Coding Level of Care Code Est Pt Level 3 (04941) Diagnoses Insect bite of left hand with local reaction, initial encounter S60.562A; W57.XXXA Encounter type: initial encounter Laterality: left
[2024-08-25 10:01] VITALS: BP 110/60; PULSE 61; O2SAT 96; BMI 24.0
== END 2024-08-25 11:02 | disposition home or self-care (01) ==
PROVIDERS: PCP Internal Medicine; Visit Provider Internal Medicine
DX: S60.562A Insect bite (nonvenomous) of left hand, initial encounter (principal); W57.XXXA Bitten or stung by nonvenomous insect and other nonvenomous arthropods, initial encounter

== ENCOUNTER → 2024-08-25 09:38 | Outpatient (BNVA) | payer OTHER, SELFPAY | PROVIDERS: PCP Internal Medicine ==

== ENCOUNTER 2024-10-02 13:47 | Outpatient (AMB) | payer OTHER, SELFPAY ==
--- NOTE | 2024-10-02 13:50 | A.OFFPC_ITS ---
Vital Signs 10/02/24 13:53 Height 5 ft 4 in Weight 138 lb 2 oz BMI 23.7 BP 100/80 Blood Pressure Location Lt brachial Position Sitting Pulse 79 Pulse Source Pulse Oximeter Pulse Oximetry (%) 97 Oxygen Delivery Method Room Air Intake Visit Reasons: Discuss beta blockers Manager Student Services Required: No Accompanied by: Self / Same As Patient Allergies sulfadiazine Allergy (Unknown, Verified 10/02/24 14:24) unknown Medication List - Last Reconciled 10/02/24 by Fco Kern MD calcium carbonate 500 mg PO DAILY prednisone 20 mg PO DAILY 5 days spironolactone 100 mg PO DAILY Tobacco use date assessed: 10/02/24 Dental Screening Dental Screen Date: 10/02/24 Did you have a dental visit in the last 12 months?: Yes Did you have a dental problem in the last 6 months where you did not have access to dental care?: No Was dental information given to patient?: Patient has dentist HPI Discuss beta blockers HPI Details Patient comes in today for further evaluation of her anxiety and to discuss potential Tx options States that the past month has been particularly overwhelming for her She has been looking for an apartment but she has 3 pet cats at home and there are not very many places nowadays that accommodate or accept pets and this is adding to her stress States that she has been experiencing attacks of anxiety often lately and she wo uld notice that her heart would feel like it is racing frequently during her bouts of increased anxiety She would also often feel no motivation to do anything at all recently and notes that she has been spending more time on her own at home and states that she has also been breaking down and crying a lot lately She has been seeing a therapist for a while now and her therapist recently suggested she speak to her PCP about possibly trying some beta blockers to help alleviate her anxiety symptoms before starting on some prescription Rx for her mood disorder if these do not help She has been hesitant about taking prescription Rx for her anxiety and depression as she's had some adverse reactions to some of these medications in the past She denies any increased headaches or dizziness lately Denies any chest pains, no increased shortness of breath No nausea/vomiting, no abdominal pain No change in bowel habits noted [facility] Medical History (Updated 10/09/24 @ 02:56 by Fco Kern MD) Anxiety Herpes PCOS (polycystic ovarian syndrome) Depression Headache Surgical History No pertinent past surgical history Family History Father Medical history unknown Mother Stroke Diabetes CVD (cardiovascular disease) Other Substance abuse Social History Housing: Apartment Alcohol intake: never Patient Tobacco Use Status: Never used Tobacco e-Cigarette/Vaping Use: Never Used Second Hand Smoke Exposure: No Substance Use Type: Marijuana service: No Current occupational status: employed Gender identity: Female Cognitive needs: No Hearing needs: No Vision needs: Yes (glasses) Female Reproductive History Menstrual Age of Menarche: 11 Questionnaire PHQ-9 Over the last 2 weeks, how often have you been bothered by any of the following problems? 1. Little interest or pleasure in doing things: not at all 2. Feeling down, depressed, or hopeless: not at all 3. Trouble falling or staying asleep, or sleeping too much: several days 4. Feeling tired or having little energy: several days 5. Poor appetite or overeating: not at all 6. Feeling bad about yourself - or that you are a failure or have let yourself or your family down: not at all 7. Trouble concentrating on things, such as reading the newspaper or watching television: several days 8. Moving or speaking so slowly that other people could have noticed. Or the opposite - being so fidgety or restless that you have been moving around a lot more than usual: not at all 9. Thoughts that you would be better off or of hurting yourself in some way: not at all Total score: 3 Depression Screening Interpretation: Positive Depression Screening Follow-up: Existing condition and In treatment (is following up with therapist regularly) Depression Screening Done: Yes 17221 - PHQ-9 Billing: Yes Source: Developed by Drs. Ronald Street, Britney Klein, Kamar Rios and colleagues, with an educational macrina from [employer]. Thrive Questionnaire Date Thrive assessed: 10/02/24 I am a: Patient What is your living situation today?: I have a steady place to live Within the past 12 months, did the food you bought not last and you didn't have the money to get more?: Never true Within the past 12 months, did you worry whether your food would run out before you got money to buy more?: Never true Do you have trouble paying for medicines?: No Do you have trouble getting transportation to medical appointments?: No Do you have trouble paying your heating and electricity bill?: No Do you have trouble taking care of your child, family member or friend?: No Do you have trouble with day-to-day activities such as bathing, preparing meals, shopping, managing finances, etc.?: No Are you currently unemployed and looking for a job?: No Are you interested in more education?: No Please select the resources that you would like help with: None Currently or been in a relationship where the following occur: No concerns reported THRIVE Score: 0 AUDIT C Alcohol Use Questionnaire (AUDIT-C) 1. How often do you have a drink containing alcohol?: Monthly or less 2. How many drinks containing alcohol do you have on a typical day when you are drinking?: 1 or 2 3. How often do you have six or more drinks on one occasion?: Never Total Score: 1 Score Reviewed/Action Taken: Yes DINA-7 AMB Questionnaire DINA-7 Date DINA - 7 assessed: 10/02/24 Feeling nervous, anxious, or on edge: 2 = More than half the days Not being able to stop or control worryin = More than half the days Worrying too much about different things: 2 = More than half the days Trouble relaxin = Several days Being so restless that it is hard to sit still: 0 = Not at all Becoming easily annoyed or irritable: 2 = More than half the days Feeling afraid as if something awful might happen: 1 = Several days Total DINA-7 score (0-4 normal; 5-9 mild; 10-14 moderate; 15-21 severe): 10 Source: Developed by Drs. Ronald Street, Britney Klein, Kamar Rios and colleagues, with an educational macrina from [employer]. Review of Systems Const Denies chills, Reports difficulty sleeping (at times), Reports fatigue, Denies fever(s) and Denies headache(s) ENT Denies dysphagia, Denies dizziness, Denies otalgia, Denies headache(s), Denies neck pain, Denies odynophagia and Denies sore throat Card Denies chest pain, Reports rapid heart rate (during attacks of anxiety), Denies irregular heart rhythm, Denies palpitations and Denies dyspnea Resp Denies chest congestion, Denies cough and Denies dyspnea GI Denies abdominal pain, Denies constipation, Denies dysphagia, Denies heartburn, Denies diarrhea, Denies nausea, Denies odynophagia and Denies vomiting Denies urinary frequency, Denies dysuria and Denies urinary urgency Musc Denies back pain, Denies arthralgias and Denies neck pain Skin/Breast Denies rash Neuro Denies dizziness, Denies headache(s) and Denies paresthesias Psych Reports anxiety (increasing), Reports depression and Reports anhedonia Endo Reports fatigue and Denies palpitations Perfecto/Lymph Denies easy bruising Physical exam (Primary Care) Vital Signs: Last Vital Signs Pulse 79 10/02/24 13:53 BP 100/80 10/02/24 13:53 Pulse Ox 97 10/02/24 13:53 Oxygen Delivery Method Room Air 10/02/24 13:53 BMI result Body Mass Index 23.7 Tobacco/Smoking Status: Tobacco use Status Tobacco use date assessed 10/02/24 10/02/24 13:59 Patient Tobacco Use Status Never used Tobacco 10/02/24 13:51 e-Cigarette/Vaping Use Never Used 10/02/24 13:51 PHQ-9: PHQ-9 Score PHQ-9: Total score 3 10/02/24 14:29 Depression Screening Interpretation: Positive Depression Screening Follow-up: Existing condition and In treatment (is following up with therapist regularly) Thrive Assessment: Date of Thrive Assessment Date Thrive assessed 10/02/24 10/02/24 13:59 Currently or been in a relationship where the following occur: No concerns reported Const General: no acute distress and alert HENMT Ears: TM's normal bilaterally and EAC's normal Throat: Yes posterior oropharynx normal and Yes tonsils normal (no TP congestion) Neck Neck: Yes no lymphadenopathy and Yes supple Thyroid: Thyroid normal Resp Auscultation: clear to auscultation bilaterally, no rales and no wheezes Cardio Rate: regular rate Rhythm: regular rhythm Heart sounds: no murmurs GI Palpation (GI): Soft to palpation and nontender Auscultation: normal bowel sounds General: Yes no CVA tenderness Back/Spine/Pelvis Back: no CVA tenderness Skin Rashes: no rashes Extrem General: Yes no clubbing, cyanosis or edema Coding Level of Care Code Est Pt Level 3 (58704) Diagnoses Anxiety F41.9 Episode of recurrent major depressive disorder, unspecified depression episode severity F33.9 Depression Type: major depressive disorder Major depression recurrence: recurrent Active/Remission status: currently active Major depression episode severity: unspecified Additional Codes PHQ-9 - 13233 - PHQ-9 Billing: Yes ([id number]) Assessment & Plan Assessment & Plan (1) Anxiety: Code(s): F41.9 - Anxiety disorder, unspecified Category: Medical Plan: Will start her on a trial of Propranolol ER 60 mg Q HS to help alleviate/control her anxiety symptoms Have advised patient that this can slow down her heart rate and also make her f eel tired and if she notices her heart rate to be consistently under 60 beats per minute and or she experiences severe fatigue, lightheadedness or dizziness, she is to stop this medication immediately and inform us about her situation SARA Follow-up with her therapist as scheduled (2) Depression: Code(s): F32.9 - Major depressive disorder, single episode, unspecified Category: Medical Qualifiers: Depression Type: major depressive disorder Major depression recurrence: recurrent Active/Remission status: currently active Major depression episode s everity: unspecified Qualified Code(s): F33.9 - Major depressive disorder, recurrent, unspecified Plan: She has tried taking a couple of unrecalled Rx for depression in the past and relates experiencing some side effects from them She currently prefers not to take any Rx for her mood disorder at this time She still goes to therapy once a week - to continue following up with psychiatry as scheduled Plan Follow up in 3 months Medications: New propranolol ER 60 mg PO BEDTIME 30 days 30 caps 3RF
[2024-10-02 13:53] VITALS: BP 100/80; PULSE 79; O2SAT 97; BMI 23.7
== END 2024-10-02 14:37 | disposition home or self-care (01) ==
PROVIDERS: PCP Internal Medicine; Visit Provider Internal Medicine
DX: F41.9 Anxiety disorder, unspecified (principal); F33.9 Major depressive disorder, recurrent, unspecified

== ENCOUNTER → 2024-10-02 13:47 | Outpatient (BNVA) | payer OTHER, SELFPAY | PROVIDERS: PCP Internal Medicine; Visit Provider Internal Medicine | DX: F41.9 Anxiety disorder, unspecified (principal); F33.9 Major depressive disorder, recurrent, unspecified | CPT/HCPCS: 96127 ==

== ENCOUNTER 2024-11-10 05:59 | Emergency (ER) | payer OTHER, SELFPAY ==
[2024-11-10 06:04] VITALS: BP 102/67; PULSE 81; RESP 16; TEMP 36.9; O2SAT 99; BMI 23.6
[2024-11-10 06:22] LABS: IDNOW Serial# 58CA691E; Strep A Nucleic Acid Positive (Negative)
--- NOTE | 2024-11-10 06:40 | ED_ITS ---
HPI - URI/Sore Throat General Chief Complaint: Upper Respiratory Symptoms Stated Complaint: swollen tonsils Time Seen by Provider: 11/10/24 06:30 Source: patient, RN notes reviewed and old records reviewed Mode of arrival: ambulatory History of Present Illness ED Provider: Yoli Lujan PA-C HPI Narrative: 43-year-old female with past medical history of asthma,, depression, presenting to the ED complaining of sore throat 3 days with associated headache, chills, fever. States fever broke yesterday. Reports decreased p.o. intake. Denies ear pain, cough SOB, CP, travel. + multiple sick contacts Related Data Home Medications ?Medication ?Instructions ?Recorded ?Confirmed spironolactone 100 mg tablet 100 mg PO DAILY 04/25/24 10/02/24 calcium carbonate 500 mg PO DAILY 07/03/24 10/02/24 Previous Rx's ?Medication ?Instructions ?Recorded prednisone 20 mg tablet 20 mg PO DAILY 5 days #5 tabs 08/25/24 propranolol 60 mg capsule,24 60 mg PO BEDTIME 30 days #30 caps 10/02/24 hr,extended release amoxicillin 875 mg-potassium 1 tab PO BID 7 days #14 tabs 11/10/24 clavulanate 125 mg tablet Allergies Allergy/AdvReac Type Severity Reaction Status Date / Time sulfadiazine Allergy Unknown unknown Verified 11/10/24 06:05 Review of Systems Review of Systems: Yes all other systems are reviewed and are negative Constitutional: Constitutional: Reports as per [facility] Past Medical History Attestation statement: The following information was validated with the patient. Source: old records reviewed Medical History Anxiety Herpes PCOS (polycystic ovarian syndrome) Depression Headache Surgical History No pertinent past surgical history Family History Family History Father Medical history unknown Mother Stroke Diabetes CVD (cardiovascular disease) Other Substance abuse Social History Social History Housing: Apartment Alcohol intake: never Patient Tobacco Use Status: Never used Tobacco e-Cigarette/Vaping Use: Never Used Second Hand Smoke Exposure: No Substance Use Type: Marijuana service: No Current occupational status: employed Gender identity: Female Cognitive needs: No Hearing needs: No Vision needs: Yes (glasses) Physical Exam Vital Signs: Vital Signs: Last Vital Signs Temp 98.5 F 11/10/24 07:10 Pulse 81 11/10/24 07:10 Resp 16 11/10/24 07:10 BP 102/67 11/10/24 07:10 Pulse Ox 99 11/10/24 07:10 O2 Del Method Room Air 11/10/24 07:10 BMI result Body Mass Index 23.6 Const: General: cooperative, healthy appearing and no acute distress Orientation/consciousness: patient oriented x3 Limitations: no limitations HEENT: Head: Yes normal to inspection and Yes atraumatic Ears: hearing grossly normal bilaterally, external ears normal, TM's normal bilaterally and mastoids normal General nose exam: Normal external nose present Face and sinus: Yes normal facial exam Mouth: no drooling Throat: Yes uvula midline, Yes abnormal tonsil (+ bilateral tonsillar swelling erythema), No peritonsillar mass, No uvula laterally displaced and No uvular edema Eyes: General: appearance normal, both eyes and all related structures EOM: EOMs intact bilaterally Neck: Neck: Yes normal visual inspection and Yes no meningeal signs Resp: Effort & Inspection: normal respiratory effort, no respiratory distress and no stridor Auscultation: clear to auscultation bilaterally, no crackles, no rales and no wheezes Cardio: Rate: regular rate Heart sounds: S1 normal heart sound present and S2 normal heart sound present Skin: Rashes: no rashes Wounds: no wounds Neuro: General: patient oriented x3, tone normal and no meningeal signs Cranial nerves: Yes CN's II-XII intact bilaterally Gait exam (Neuro): Normal gait present Extrem: General: Yes normal to inspection Course Course Course Narrative: -1859--rapid strep positive. COVID/flu/RSV negative > patient given 1st dose of Augmentin, viscous lidocaine & Motrin in the ED Results discussed with patient including worrisome signs and symptoms and strict return precautions, and when to return to the emergency department. They verbalized understanding and feel safe for discharge at this time. Medications Administered Discontinued Medications Generic Name Dose Route Start Last Admin Trade Name Freq PRN Reason Stop Dose Admin Amoxicillin/Clavulanate Potassium 875 mg 11/10/24 06:39 11/10/24 07:07 Amoxicillin/Potassium Clav 875 Mg Tablet PO 11/10/24 06:40 875 mg ONCE ONE Administration Ibuprofen 800 mg 11/10/24 06:39 11/10/24 07:07 Ibuprofen 800 Mg Tablet PO 11/10/24 06:40 800 mg ONCE ONE Administration Lidocaine HCl 15 ml 11/10/24 06:39 11/10/24 07:07 Lidocaine Hcl Viscous 2 % 15 Ml Solution MUCOUS MEM 11/10/24 06:40 15 ml ONCE ONE Administration Medical Decision Making Medical Decision Making MDM Narrative: 43-year-old female with past medical history of asthma,, depression, presenting to the ED complaining of sore throat 3 days with associated headache, chills, fever. On exam vital signs stable, NAD, nontoxic appearing, physical exam as noted above with bilateral tonsillar swelling and erythema. Talking in complete sentences, no respiratory distress, no stridor. Lungs CTA. Concern for viral illness vs strep pharyngitis. 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 Lower suspicion for pneumonia Plan: Viral testing, rapid strep Please refer to course for remaining clinical decision making, interpretation of labs/imaging results, and discussions with consultants and/or family members. Differential Diagnosis Differential Diagnoses: The differential diagnosis associated with the presentation includes As above Lab Data [facility] Lab Attestation statement: I reviewed the patient's lab results. Labs: Lab Results 11/10/24 Range/Units 06:10 Influenza Type A (PCR) NEGATIVE (Negative) Influenza Type B (PCR) NEGATIVE (Negative) RSV RNA Qual (PCR) NEGATIVE (Negative) SARS-CoV-2 RNA (RT-PCR) NEGATIVE (Negative) S. pyogenes GrpA MILO Positive A (Negative) External Record Review External record reviewed: Inpatient record, Office record, Outpatient record, Prior outpatient labs, Prior outpatient radiology, Primary care record and Outside ED record Tests considered The following testing was considered but not selected: As above Prescription Management I considered prescription management with: Pain Medication and Antibiotic Social Determinants Patient?s care significantly limited by Social Determinants of Health including: Other Social Determinant of Health Discharge Plan Discharge Clinical Impression: Strep throat Patient Disposition: Home, Self-Care Instructions: Strep Throat (DC) Additional Instructions: You have strep throat You tested negative for COVID, flu, RSV Augmentin as an antibiotic please take as prescribed Make sure you are staying hydrated. Drink plenty of fluids. Rest Alternate Tylenol and Motrin at home as needed for body aches and fever If her symptoms persist or worsen you constant worsening sore throat, difficulty or inability to swallow return to the emergency department Follow-up with your doctor. If symptoms persist or worsen return to the emergency department *If you are a child & not tolerating liquid or urinating for more than 6 hours, or fevers are uncontrolled with medications at home, return to the emergency department* Prescriptions: New amoxicillin-pot clavulanate 875-125 mg tablet 1 tab PO BID 7 Days Qty: 14 0RF No Action calcium carbonate 500 mg calcium (1,250 mg) tablet 500 mg PO DAILY spironolactone 100 mg tablet 100 mg PO DAILY prednisone 20 mg tablet 20 mg PO DAILY 5 Days Qty: 5 0RF propranolol 60 mg capsule,extended release 24 hr 60 mg PO BEDTIME 30 Days Qty: 30 3RF Referrals: Fco Kern MD [Primary Care Provider] - 1 week Stand Alone Forms: Work/School Release Interventions: ED Discharge Assessment Last Done: 11/10/24 07:10 Discharge Date/Time: 11/10/24 07:50 Print Language: German
[2024-11-10 06:54] LABS: Influenza A PCR NEGATIVE (Negative); Influenza B PCR NEGATIVE (Negative); Resp Syncy Virus RNA Qual PCR NEGATIVE (Negative); SARS COV2 PCR INHOUSE NEGATIVE (Negative)
[2024-11-10] MEDS: Ibuprofen 800 MG TABLET PO (07:07)
[2024-11-10] MEDS: Amoxicillin/Potassium Clav 875 MG TABLET PO (07:07)
[2024-11-10] MEDS: Lidocaine HCl Viscous 2 % 15 ML SOLUTION MUCOUS MEM (07:07)
[2024-11-10 07:10] VITALS: BP 102/67; PULSE 81; RESP 16; TEMP 36.9; O2SAT 99
== END 2024-11-10 07:50 | disposition home or self-care (01) ==
PROVIDERS: Emergency Provider Emergency Medicine Emergency Medical Services; PCP Internal Medicine
DX: J02.0 Streptococcal pharyngitis (principal); R51.9 Headache, unspecified; R50.9 Fever, unspecified; Z03.818 Encounter for observation for suspected exposure to other biological agents ruled out
CPT/HCPCS: 0241U; 87651; 99283

== ENCOUNTER 2025-02-14 13:55 | Outpatient (REF) | payer OTHER, SELFPAY | END 2025-02-14 13:56 | disposition home or self-care (01) | LOC: HO.LAB 13:55 | PROVIDERS: PCP Internal Medicine; Visit Provider Advanced Practice Midwife | DX: Z13.89 Encounter for screening for other disorder (principal) ==

== ENCOUNTER 2025-02-14 13:55 | Outpatient (AMB) | payer OTHER, SELFPAY ==
--- NOTE | 2025-02-14 14:06 | A.OFFVIS_ITS ---
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 fishy at times, slight itching at onset) over the last month. No pelvic pain or burning. Regular monthly menses, has spaced out slightly this year. Currently is sexually active, uses condoms at time. STI screening offered; she accepts. She tries to eat healthy and stays active with exercise. Denies family history of breast, ovarian or colon cancer. Last pap smear 2021, negative. Mammogram: 2023. [facility] Medical History Anxiety Herpes PCOS (polycystic ovarian syndrome) Depression Headache Surgical History No pertinent past surgical history Family History Father Medical history unknown Mother Stroke Diabetes CVD (cardiovascular disease) Other Substance abuse Social History Housing: Apartment Alcohol intake: never Patient Tobacco Use Status: Never used Tobacco e-Cigarette/Vaping Use: Never Used Second Hand Smoke Exposure: No Substance Use Type: Marijuana service: No Current occupational status: employed Gender identity: Female Cognitive needs: No Hearing needs: No Vision needs: Yes (glasses) Female Reproductive History Menstrual Age of Menarche: 11 Duration of menses: 3-5 days Date of last menstrual period: 01/26/25 Total pregnancies: 0 Date of last pap smear: 03/13/22 (neg pap and hpv) History of abnormal pap smear: Yes (7/18 +hpv 9/18 colpo efraín 1 01/11 neg,neg 01/12 neg,neg) Date of Mammogram: 05/31/24 (Birad 1) Physical Exam Vital Signs: Last Vital Signs BP 114/72 02/14/25 14:07 BMI result Body Mass Index 22.5 Assessment & Plan Assessment & Plan (1) Encounter for well woman exam with routine gynecological exam: Code(s): Z01.419 - Encounter for gynecological examination (general) (routine) without abnormal findings Category: Medical Plan: Discussed: Current recommendations for pap smears per ASCCP guidelines. Breast awareness and periodic breast exams. Mammogram yearly. Maintain a healthy lifestyle including a well balanced diet and routine exercise. Use condoms consistently for STI and prevention. Menopause verses perimenopause. Menopause is definitive of 1 year of no menses or 12 months in succession. Report any abnormal uterine bleeding in example prolonged episodes, or short intervals less than 24 days. Colonoscopy >45, or at risk sooner. Patient verbalizes understanding and agrees to the plan of care. She was given opportunity to ask questions and all questions were answered to the best of my ability. RTO in one year for annual heavy truck mechanic examination. This note is constructed using voice recognition software. While every effort has been made to ensure accuracy, home inspector errors may have been included. (2) Vaginal discharge: Code(s): N89.8 - Other specified noninflammatory disorders of vagina Plan: Await culture results for plan of care. (3) Possible exposure to STD: Code(s): Z20.2 - Contact with and (suspected) exposure to infections with a predominantly sexual mode of transmission Plan BV, GC chlamydia obtained, STD blood work ordered. Await results for plan of care. The patient expressed understanding and agreement with the plan of care. All of her questions and concerns were addressed to the best of my ability. Orders: Orders Bacterial Vaginosis Panel Today N89.8 - Other specified noninflammatory disorders of vagina CT NG by PCR Today N89.8 - Other specified noninflammatory disorders of vagina HIV Ab/Ag Today Z20.2 - Contact with and (suspected) exposure to infections with a predominantly sexual mode of transmission Hepatitis C Antibody Reflex Today Z20.2 - Contact with and (suspected) exposure to infections with a predominantly sexual mode of transmission Hepatitis B Core Antibody Today Z20.2 - Contact with and (suspected) exposure to infections with a predominantly sexual mode of transmission Syphilis Screen Today Z20.2 - Contact with and (suspected) exposure to infections with a predominantly sexual mode of transmission Coding Level of Care Code Est Pt Prev Care 40-64y(81643) Diagnoses Encounter for well woman exam with routine gynecological exam Z01.419 Vaginal discharge N89.8 Possible exposure to STD Z20.2
[2025-02-14 14:07] VITALS: BP 114/72; BMI 22.5
== END 2025-02-14 14:40 | disposition home or self-care (01) ==
LOC: HO.HWS 13:56
PROVIDERS: PCP Internal Medicine; Visit Provider Advanced Practice Midwife
DX: Z01.419 Encounter for gynecological examination (general) (routine) without abnormal findings (principal); N89.8 Other specified noninflammatory disorders of vagina; Z20.2 Contact with and (suspected) exposure to infections with a predominantly sexual mode of transmission
CPT/HCPCS: 99396; 99459

== ENCOUNTER 2025-02-14 14:30 | Outpatient (REF) | payer OTHER, SELFPAY ==
[2025-02-14 18:26] LABS: Bacterial Vaginosis PCR POSITIVE (Negative); Candida Group PCR NOT DETECTED (Not Detect); Candida glab krusei PCR NOT DETECTED (Not Detect); Trichomonas vaginalis PCR NOT DETECTED (Not Detect)
[2025-02-14 20:18] LABS: CT PCR NOT DETECTED (Not Detect.); NG PCR NOT DETECTED (Not Detect.)
[2025-02-15 04:22] LABS: Syphilis Screen Nonreactive (Nonreactive)
[2025-02-15 04:36] LABS: HBc Num1 0.06 S/CO (0.00-0.79); HIV AB/AG Nonreactive (Nonreactive); HIV Num 1 0.09 S/CO (0.00-0.99); Hepatitis B Core Antibody Nonreactive (Nonreactive); ~HepC Num1 0.09 S/CO (0.00-0.79); ~Hepatitis C Antibody Nonreactive (Nonreactive)
== END 2025-02-14 14:31 | disposition home or self-care (01) ==
LOC: HO.LNP 14:30
PROVIDERS: Visit Provider Advanced Practice Midwife
DX: N89.8 Other specified noninflammatory disorders of vagina (principal); Z20.2 Contact with and (suspected) exposure to infections with a predominantly sexual mode of transmission
CPT/HCPCS: 81515; 86704; 86780; 86803; 87389; 87491; 87591

== ENCOUNTER 2025-02-14 14:46 | Outpatient (REF) | payer OTHER, SELFPAY | END 2025-02-14 14:47 | disposition home or self-care (01) | LOC: HO.LAB 14:46 | PROVIDERS: Visit Provider Advanced Practice Midwife | DX: Z13.89 Encounter for screening for other disorder (principal) ==

== ENCOUNTER 2025-02-15 07:15 | Outpatient (REF) | payer OTHER, SELFPAY ==
[2025-02-15 11:58] LABS: CT PCR NOT DETECTED (Not Detect.); NG PCR NOT DETECTED (Not Detect.)
== END 2025-02-15 07:16 | disposition home or self-care (01) ==
LOC: HO.LNP 07:15
PROVIDERS: Visit Provider Advanced Practice Midwife
DX: N89.8 Other specified noninflammatory disorders of vagina (principal)
CPT/HCPCS: 87491; 87591

== ENCOUNTER 2025-03-09 15:38 | Outpatient (AMB) | payer OTHER, SELFPAY ==
--- NOTE | 2025-03-09 15:40 | A.OFFPC_ITS ---
Vital Signs 03/09/25 15:41 Height 5 ft 4 in Weight 134 lb BMI 23.0 BP 100/60 Blood Pressure Location Lt brachial Position Sitting Pulse 73 Pulse Source Pulse Oximeter Pulse Oximetry (%) 99 Oxygen Delivery Method Room Air Intake Visit Reasons: 3 month f/u Contracts Specialist Required: No Accompanied by: Self / Same As Patient Allergies sulfadiazine Allergy (Unknown, Verified 03/11/25 12:28) unknown Medication List - Last Reconciled 03/11/25 by Fco Kern MD propranolol ER 60 mg PO BEDTIME spironolactone 100 mg PO DAILY vitamin [id number] acid 500-400 mcg 1 tab PO DAILY Tobacco use date assessed: 03/09/25 Dental Screening Dental Screen Date: 03/09/25 Did you have a dental visit in the last 12 months?: Yes Did you have a dental problem in the last 6 months where you did not have access to dental care?: No Was dental information given to patient?: Patient has dentist HPI 3 month f/u HPI Details Patient comes in today for her follow up visit States that she is still experiencing recurrent symptoms of anxiety but her bedtime dose of Propranolol ER has been helping her a lot in mitigating her anxiety symptoms, especially with her symptoms of heart racing She continues to follow-up with her therapist regularly States that she feels okay otherwise She denies any headaches or dizziness Denies any chest pains, no shortness of breath No nausea/vomiting, no abdominal pain No change in bowel habits noted PFSH Medical History Anxiety Herpes PCOS (polycystic ovarian syndrome) Depression Headache Surgical History No pertinent past surgical history Family History Father Medical history unknown Mother Stroke Diabetes CVD (cardiovascular disease) Other Substance abuse Social History Housing: Apartment Alcohol intake: never Patient Tobacco Use Status: Never used Tobacco e-Cigarette/Vaping Use: Never Used Second Hand Smoke Exposure: No Substance Use Type: Marijuana service: No Current occupational status: employed Gender identity: Female Cognitive needs: No Hearing needs: No Vision needs: Yes (glasses) Female Reproductive History Menstrual Age of Menarche: 11 Questionnaire PHQ-9 Over the last 2 weeks, how often have you been bothered by any of the following problems? 1. Little interest or pleasure in doing things: not at all 2. Feeling down, depressed, or hopeless: not at all 3. Trouble falling or staying asleep, or sleeping too much: several days 4. Feeling tired or having little energy: several days 5. Poor appetite or overeating: not at all 6. Feeling bad about yourself - or that you are a failure or have let yourself or your family down: not at all 7. Trouble concentrating on things, such as reading the newspaper or watching television: several days 8. Moving or speaking so slowly that other people could have noticed. Or the opposite - being so fidgety or restless that you have been moving around a lot more than usual: not at all 9. Thoughts that you would be better off or of hurting yourself in some way: not at all Total score: 3 Depression Screening Interpretation: Positive Depression Screening Follow-up: Existing condition and In treatment (is following up with therapist regularly) Depression Screening Done: Yes 99934 - PHQ-9 Billing: Yes Source: Developed by Drs. Ronald Street, Britney Klein, Kamar Rios and colleagues, with an educational macrina from [employer]. Thrive Questionnaire Date Thrive assessed: 03/09/25 I am a: Patient What is your living situation today?: I have a steady place to live Within the past 12 months, did the food you bought not last and you didn't have the money to get more?: Never true Within the past 12 months, did you worry whether your food would run out before you got money to buy more?: Never true Do you have trouble paying for medicines?: No Do you have trouble getting transportation to medical appointments?: No Do you have trouble paying your heating and electricity bill?: No Do you have trouble taking care of your child, family member or friend?: No Do you have trouble with day-to-day activities such as bathing, preparing meals, shopping, managing finances, etc.?: No Are you currently unemployed and looking for a job?: No Are you interested in more education?: No Please select the resources that you would like help with: None Currently or been in a relationship where the following occur: No concerns reported THRIVE Score: 0 AUDIT C Alcohol Use Questionnaire (AUDIT-C) 1. How often do you have a drink containing alcohol?: Monthly or less 2. How many drinks containing alcohol do you have on a typical day when you are drinking?: 1 or 2 3. How often do you have six or more drinks on one occasion?: Never Total Score: 1 Score Reviewed/Action Taken: Yes DINA-7 AMB Questionnaire DINA-7 Date DINA - 7 assessed: 03/09/25 Feeling nervous, anxious, or on edge: 2 = More than half the days Not being able to stop or control worryin = More than half the days Worrying too much about different things: 2 = More than half the days Trouble relaxin = Several days Being so restless that it is hard to sit still: 0 = Not at all Becoming easily annoyed or irritable: 2 = More than half the days Feeling afraid as if something awful might happen: 1 = Several days Total DINA-7 score (0-4 normal; 5-9 mild; 10-14 moderate; 15-21 severe): 10 Source: Developed by Drs. Ronald Street, Britney Klein, Kamar Rios and colleagues, with an educational macrina from [employer]. Review of Systems Const Reports difficulty sleeping (at times), Reports fatigue, Denies fever(s) and Denies headache(s) ENT Denies dysphagia, Denies dizziness, Denies headache(s), Denies neck pain, Denies odynophagia and Denies sore throat Card Denies chest pain, Reports rapid heart rate (during attacks of anxiety - better controlled with Propranolol ER), Denies irregular heart rhythm, Denies palpitations and Denies dyspnea Resp Denies chest congestion, Denies cough and Denies dyspnea GI Denies abdominal pain, Denies constipation, Denies dysphagia, Denies heartburn, Denies diarrhea, Denies nausea, Denies odynophagia and Denies vomiting Denies urinary frequency, Denies dysuria and Denies urinary urgency Musc Denies back pain, Denies arthralgias and Denies neck pain Skin/Breast Denies rash Neuro Denies dizziness, Denies headache(s) and Denies paresthesias Psych Reports anxiety, Reports depression and Reports anhedonia Endo Reports fatigue and Denies palpitations Perfecto/Lymph Denies easy bruising Physical exam (Primary Care) Vital Signs: Last Vital Signs Pulse 73 03/09/25 15:41 BP 100/60 03/09/25 15:41 Pulse Ox 99 03/09/25 15:41 Oxygen Delivery Method Room Air 03/09/25 15:41 BMI result Body Mass Index 23.0 Tobacco/Smoking Status: Tobacco use Status Tobacco use date assessed 03/09/25 03/09/25 15:49 Patient Tobacco Use Status Never used Tobacco 03/09/25 15:49 e-Cigarette/Vaping Use Never Used 03/09/25 15:49 PHQ-9: PHQ-9 Score PHQ-9: Total score 3 03/09/25 16:11 Depression Screening Interpretation: Positive Depression Screening Follow-up: Existing condition and In treatment (is following up with therapist regularly) Thrive Assessment: Date of Thrive Assessment Date Thrive assessed 03/09/25 03/09/25 15:49 Currently or been in a relationship where the following occur: No concerns reported Const General: no acute distress and alert HENMT Throat: Yes posterior oropharynx normal and Yes tonsils normal (no TP congestion) Neck Neck: Yes no lymphadenopathy and Yes supple Thyroid: Thyroid normal Resp Auscultation: clear to auscultation bilaterally, no rales and no wheezes Cardio Rate: regular rate Rhythm: regular rhythm Heart sounds: no murmurs GI Palpation (GI): Soft to palpation and nontender Auscultation: normal bowel sounds General: Yes no CVA tenderness Back/Spine/Pelvis Back: no CVA tenderness Skin Rashes: no rashes Extrem General: Yes no clubbing, cyanosis or edema Coding Level of Care Code Est Pt Level 4 (23987) Diagnoses PCOS (polycystic ovarian syndrome) E28.2 Allergic rhinitis, unspecified seasonality, unspecified trigger J30.9 Allergic rhinitis seasonality: unspecified Allergic rhinitis trigger: unspecified Anxiety F41.9 Episode of recurrent major depressive disorder, unspecified depression episode severity F33.9 Active/Remission status: currently active Depression Type: major depressive disorder Major depression episode severity: unspecified Major depression recurrence: recurrent Additional Codes PHQ-9 - 14549 - PHQ-9 Billing: Yes ([id number]) Assessment & Plan Assessment & Plan (1) PCOS (polycystic ovarian syndrome): Code(s): E28.2 - Polycystic ovarian syndrome Category: Medical Plan: Continue Spironolactone 100 mg QD Follow up with OB-[facility] as scheduled (2) Allergic rhinitis: Code(s): J30.9 - Allergic rhinitis, unspecified Category: Medical Qualifiers: Allergic rhinitis seasonality: unspecified Allergic rhinitis trigger: unspecified Qualified Code(s): J30.9 - Allergic rhinitis, unspecified Plan: Continue Loratadine 10 mg QD PRN (3) Anxiety: Code(s): F41.9 - Anxiety disorder, unspecified Category: Medical Plan: Continue Propranolol ER 60 mg Q HS - reports that the Rx is helping with her anxiety symptoms She is encouraged to continue following up with her therapist regularly as scheduled (4) Depression: Code(s): F32.9 - Major depressive disorder, single episode, unspecified Category: Medical Qualifiers: Active/Remission status: currently active Depression Type: major depressive disorder Major depression episode severity: unspecified Major depression recurrence: recurrent Qualified Code(s): F33.9 - Major depressive disorder, recurrent, unspecified Plan: Patient still prefers not to take any Rx for her depression/mood disorder at this time She has tried taking a couple of unrecalled Rx for depression in the past and relates experiencing some side effects from them She currently prefers not to take any Rx for her mood disorder at this time She continues to go to therapy once a week - to follow up with psychiatry as scheduled Plan To return in 3 months for her next annual physical examination Orders: Orders Complete Blood Count Auto Diff 05/26/25 D64.9 - Anemia, unspecified, Z00.00 - Encounter for general adult medical examination without abnormal findings Comprehensive [place]. Panel Fast 05/26/25 E78.00 - Pure hypercholesterolemia, u nspecified, Z00.00 - Encounter for general adult medical examination without abnormal findings Lipid Panel 05/26/25 E78.00 - Pure hypercholesterolemia, unspecified, Z00.00 - Encounter for general adult medical examination without abnormal findings TSH reflex Free T4 05/26/25 E78.00 - Pure hypercholesterolemia, unspecified, Z00.00 - Encounter for general adult medical examination without abnormal findings UA CC w/rflx Micro + Cult 05/26/25 R30.0 - Dysuria, Z00.00 - Encounter for general adult medical examination without abnormal findings Vitamin D 25-OH Total 05/26/25 E55.9 - Vitamin D deficiency, unspecified, Z00.00 - Encounter for general adult medical examination without abnormal f indings
[2025-03-09 15:41] VITALS: BP 100/60; PULSE 73; O2SAT 99; BMI 23.0
== END 2025-03-09 16:23 | disposition home or self-care (01) ==
LOC: HO.HMCH 15:38
PROVIDERS: PCP Internal Medicine; Visit Provider Internal Medicine
DX: E28.2 Polycystic ovarian syndrome (principal); J30.9 Allergic rhinitis, unspecified; F41.9 Anxiety disorder, unspecified; F33.9 Major depressive disorder, recurrent, unspecified

== ENCOUNTER → 2025-03-09 15:38 | Outpatient (BNVA) | payer OTHER, SELFPAY | PROVIDERS: PCP Internal Medicine; Visit Provider Internal Medicine | DX: E28.2 Polycystic ovarian syndrome (principal); J30.9 Allergic rhinitis, unspecified; F41.9 Anxiety disorder, unspecified; F33.9 Major depressive disorder, recurrent, unspecified; Z79.899 Other long term (current) drug therapy | CPT/HCPCS: 96127 ==

== ENCOUNTER 2025-07-03 14:49 | Outpatient (AMB) | payer OTHER, SELFPAY ==
[2025-07-03 15:02] VITALS: BP 102/68; PULSE 48; O2SAT 98; BMI 23.0
--- NOTE | 2025-07-03 15:02 | A.OFFPC_ITS ---
Vital Signs 07/03/25 15:02 07/03/25 15:41 Height 5 ft 4 in Weight 134 lb 2 oz BMI 23.0 BP 102/68 Blood Pressure Location Lt brachial Position Sitting Pulse 48 L 64 Pulse Source Pulse Oximeter Palpation Pulse Oximetry (%) 98 Oxygen Delivery Method Room Air Intake Visit Reasons: Annual exam Accompanied by: Self / Same As Patient Allergies sulfadiazine Allergy (Unknown, Verified 07/03/25 15:31) unknown atorvastatin Adverse Reaction (Intermediate, Verified 07/03/25 15:31) fatigue, somnolence pioglitazone Adverse Reaction (Intermediate, Verified 07/03/25 15:31) fatigue, drowsiness Medication List - Last Reconciled 07/03/25 by Fco Kern MD propranolol ER 60 mg PO BEDTIME spironolactone 100 mg PO DAILY vitamin M51-oduie acid 500-400 mcg 1 tab PO DAILY Tobacco use date assessed: 07/03/25 Dental Screening Dental Screen Date: 07/03/25 Did you have a dental visit in the last 12 months?: No Did you have a dental problem in the last 6 months where you did not have access to dental care?: No Was dental information given to patient?: No HPI Annual exam HPI Details Patient comes in today for her annual physical examination States that she has been experiencing recurrent headaches lately Notes that her vision likely needs to be reassessed or re-evaluated as she feels that her current eyeglasses are no longer correcting her vision appropriately She also just finished some antibiotic treatment for bacterial vaginosis recently so she is not sure at this time with a her headaches are related to her under corrected eyesight/vision or a side effect of her recent antibiotics She denies any dizziness Denies any chest pains, no shortness of breath No nausea/vomiting, no abdominal pain No change in bowel habits noted She denies any acute urinary symptoms She was not able to get her previously ordered labs done prior to her appointment today She had her annual mammogram last done in May 2024 she is now due for repeat this year She had her yearly gynecology exam done back in January 2025; her Pap smear was last done in 2021 - Pap came out negative She will be due for screening colonoscopy early next year [facility] Medical History Anxiety Herpes PCOS (polycystic ovarian syndrome) Depression Headache Surgical History No pertinent past surgical history Family History Father Medical history unknown Mother Stroke Diabetes CVD (cardiovascular disease) Other Substance abuse Social History Housing: Apartment Alcohol intake: never Patient Tobacco Use Status: Never used Tobacco e-Cigarette/Vaping Use: Never Used Second Hand Smoke Exposure: No Substance Use Type: Marijuana service: No Current occupational status: employed Gender identity: Female Cognitive needs: No Hearing needs: No Vision needs: Yes (glasses) Female Reproductive History Menstrual Age of Menarche: 11 Questionnaire PHQ-9 Over the last 2 weeks, how often have you been bothered by any of the following problems? 1. Little interest or pleasure in doing things: more than half the days 2. Feeling down, depressed, or hopeless: several days 3. Trouble falling or staying asleep, or sleeping too much: not at all 4. Feeling tired or having little energy: several days 5. Poor appetite or overeating: not at all 6. Feeling bad about yourself - or that you are a failure or have let yourself or your family down: not at all 7. Trouble concentrating on things, such as reading the newspaper or watching television: not at all 8. Moving or speaking so slowly that other people could have noticed. Or the opposite - being so fidgety or restless that you have been moving around a lot more than usual: not at all 9. Thoughts that you would be better off or of hurting yourself in some way: not at all Total score: 4 Depression Screening Interpretation: Positive Depression Screening Follow-up: Existing condition and In treatment (is following up with therapist regularly) Depression Screening Done: Yes 45996 - PHQ-9 Billing: Yes Source: Developed by Drs. Ronald Street, Britney Klein, Kamar Rios and colleagues, with an educational macrina from [employer] Thrive Questionnaire Date Thrive assessed: 07/03/25 I am a: Patient What is your living situation today?: I have a steady place to live Within the past 12 months, did the food you bought not last and you didn't have the money to get more?: Never true Within the past 12 months, did you worry whether your food would run out before you got money to buy more?: Sometimes True Do you have trouble paying for medicines?: No Do you have trouble getting transportation to medical appointments?: No Do you have trouble paying your heating and electricity bill?: No Do you have trouble taking care of your child, family member or friend?: No Do you have trouble with day-to-day activities such as bathing, preparing meals, shopping, managing finances, etc.?: No Are you currently unemployed and looking for a job?: No Are you interested in more education?: No Please select the resources that you would like help with: None Currently or been in a relationship where the following occur: No concerns reported THRIVE Score: 1 AUDIT C Alcohol Use Questionnaire (AUDIT-C) 1. How often do you have a drink containing alcohol?: 2-4 times a month 2. How many drinks containing alcohol do you have on a typical day when you are drinking?: 1 or 2 3. How often do you have six or more drinks on one occasion?: Never Total Score: 2 Score Reviewed/Action Taken: Yes DINA-7 AMB Questionnaire DINA-7 Date DINA - 7 assessed: 07/03/25 Feeling nervous, anxious, or on edge: 1 = Several days Not being able to stop or control worryin = More than half the days Worrying too much about different things: 2 = More than half the days Trouble relaxin = Several days Being so restless that it is hard to sit still: 0 = Not at all Becoming easily annoyed or irritable: 1 = Several days Feeling afraid as if something awful might happen: 0 = Not at all Total DINA-7 score (0-4 normal; 5-9 mild; 10-14 moderate; 15-21 severe): 7 Source: Developed by Drs. Ronald Street, Britney Klein, Kamar Rios and colleagues, with an educational macrina from [employer] Review of Systems Const Denies chills, Reports fatigue, Denies fever(s), Reports headache(s) (recurrent lately) and Denies malaise Eyes Reports as per HPI, Reports blurry vision, Denies change in vision, Denies irritation and Denies itchy eyes ENT Denies dysphagia, Denies dizziness, Denies otalgia, Reports headache(s) (recurrent lately), Denies nasal congestion, Denies neck pain, Denies odynophagia, Denies sinus pain and Denies sore throat Card Denies chest pain, Denies rapid heart rate, Denies irregular heart rhythm, Denies palpitations and Denies dyspnea Resp Denies chest congestion, Denies cough, Denies dyspnea and Denies wheezing GI Denies abdominal pain, Denies bloating, Denies constipation, Denies dysphagia, Denies heartburn, Denies diarrhea, Denies nausea, Denies odynophagia and Denies vomiting Denies hematuria, Denies urinary frequency, Denies dysuria, Denies urinary incontinence, Denies urinary urgency and Denies vaginal discharge (just recently finished Abx for BV; has had 2 bouts of BV this past year) Musc Denies back pain, Denies arthralgias, Denies joint swelling, Denies muscle weakness and Denies neck pain Skin/Breast Denies breast pain, Denies breast mass, Denies change in pigmentation, Denies lesions, Denies rash and Denies unusual bruising Neuro Denies dizziness, Reports headache(s) (recurrent lately) and Denies paresthesias Psych Denies anxiety and Denies depression Endo Reports fatigue and Denies palpitations Perfecto/Lymph Denies easy bruising Aller/Immun Denies itchy eyes and Denies wheezing Physical exam (Primary Care) Vital Signs: Last Vital Signs Pulse 64 07/03/25 15:41 BP 102/68 07/03/25 15:02 Pulse Ox 98 07/03/25 15:02 Oxygen Delivery Method Room Air 07/03/25 15:02 BMI result Body Mass Index 23.0 Tobacco/Smoking Status: Tobacco use Status Tobacco use date assessed 07/03/25 07/03/25 15:09 Patient Tobacco Use Status Never used Tobacco 07/03/25 15:09 e-Cigarette/Vaping Use Never Used 07/03/25 15:09 PHQ-9: PHQ-9 Score PHQ-9: Total score 4 07/03/25 15:33 Depression Screening Interpretation: Positive Depression Screening Follow-up: Existing condition and In treatment (is following up with therapist regularly) Thrive Assessment: Date of Thrive Assessment Date Thrive assessed 07/03/25 07/03/25 15:09 Currently or been in a relationship where the following occur: No concerns reported Const General: no acute distress, alert and awake Orientation/consciousness: patient oriented x3 HENMT Head: Yes normocephalic and Yes atraumatic Ears: external ears normal, TM's normal bilaterally and EAC's normal General nose exam: No nasal discharge present Face and sinus: Yes normal facial exam and Yes sinuses nontender Teeth and gingiva: dentition normal Throat: Yes posterior oropharynx normal and Yes tonsils normal (no TP congestion) Eyes Eyelids: Yes eyelids normal Conjunctivae: conjunctivae normal Pupils: Equal, round and reactive pupils present EOM: EOMs intact bilaterally Neck Neck: Yes no lymphadenopathy and Yes supple Thyroid: Thyroid normal Resp Auscultation: clear to auscultation bilaterally, no rales and no wheezes Cardio Rate: regular rate Rhythm: regular rhythm Heart sounds: no murmurs GI Palpation (GI): Soft to palpation, nontender and No hepatosplenomegaly present Auscultation: normal bowel sounds General: Yes no CVA tenderness Back/Spine/Pelvis Back: no CVA tenderness Thoracic/Lumbar Spine: thoracic and lumbar spine normal to inspection Skin Lesions: no lesions Rashes: no rashes Neuro General: patient oriented x3, moves all extremities, no focal motor deficits and CN's II-XI intact bilaterally Cranial nerves: Yes Equal, round and reactive pupils present Cognition (Neuro): normal cognition Gait exam (Neuro): Normal gait present Extrem General: Yes no clubbing, cyanosis or edema Coding Level of Care Code Est Pt Prev Care 40-64y(56648) Diagnoses Annual physical exam Z00.00 Nonintractable headache, unspecified chronicity pattern, unspecified headache type R51.9 Headache type: unspecified Headache chronicity pattern: unspecified pattern Intractability: not intractable PCOS (polycystic ovarian syndrome) E28.2 Allergic rhinitis, unspecified seasonality, unspecified trigger J30.9 Allergic rhinitis seasonality: unspecified Allergic rhinitis trigger: unspecified Anxiety F41.9 Episode of recurrent major depressive disorder, unspecified depression episode severity F33.9 Active/Remission status: currently active Depression Type: major depressive disorder Major depression episode severity: unspecified Major depression recurrence: recurrent Breast cancer screening by mammogram Z12.31 Additional Codes PHQ-9 - 09588 - PHQ-9 Billing: Yes ([id number]) Assessment & Plan Assessment & Plan (1) Annual physical exam: Code(s): Z00.00 - Encounter for general adult medical examination without abnormal findings Category: Medical Plan: Check labs SARA to complete her annual exam today - these have been previously ordered and will be updated accordingly She had her annual mammogram last done in May 2024 she is now due for repeat this year She had her yearly gynecology exam done back in January 2025; her Pap smear was last done in 2021 - Pap came out negative She will be due for screening colonoscopy early next year (2) Headache: Code(s): R51.9 - Headache, unspecified Category: Medical Qualifiers: Headache type: unspecified Headache chronicity pattern: unspecified pattern Intractability: not intractable Qualified Code(s): R51.9 - Headache, unspecified Plan: Have advised patient that her recent headaches are more likely due to her inadequately corrected vision/eyesight rather than a side effects of her recent Abx Tx for bacterial vaginosis She is encouraged to schedule a follow-up appointment with her hedis manager or school curriculum developer to have her vision reassessed and re-evaluated so she can get the appropriate prescription eyeglasses to correct her vision (3) PCOS (polycystic ovarian syndrome): Code(s): E28.2 - Polycystic ovarian syndrome Category: Medical Plan: Continue Spironolactone 100 mg QD Follow up with OB-Sales Trainee as scheduled (4) Allergic rhinitis: Code(s): J30.9 - Allergic rhinitis, unspecified Category: Medical Qualifiers: Allergic rhinitis seasonality: unspecified Allergic rhinitis trigger: unspecified Qualified Code(s): J30.9 - Allergic rhinitis, unspecified Plan: Continue OTC Loratadine 10 mg QD PRN (5) Anxiety: Code(s): F41.9 - Anxiety disorder, unspecified Category: Medical Plan: Continue Propranolol ER 60 mg Q HS - reports that the Rx is helping with her anxiety symptoms but her heart rate tends to be on the low side often due to the effects of the medication She is encouraged to continue following up with her therapist regularly as scheduled (6) Depression: Code(s): F32.9 - Major depressive disorder, single episode, unspecified Category: Medical Qualifiers: Active/Remission status: currently active Depression Type: major depressive disorder Major depression episode severity: unspecified Major depression recurrence: recurrent Qualified Code(s): F33.9 - Major depressive disorder, recurrent, unspecified Plan: Patient still prefers not to take any Rx for her depression/mood disorder at this time She has tried taking a couple of unrecalled Rx for depression in the past and relates experiencing some side effects from them She currently prefers not to take any Rx for her mood disorder at this time She continues to go to therapy once a week - to follow up with psychiatry as scheduled (7) Breast cancer screening by mammogram: Code(s): Z12.31 - Encounter for screening mammogram for malignant neoplasm of breast Category: Medical Plan: Will send her for her annual mammography, which is now due Plan Follow up in 6 months Orders: Orders MM tomosynthesis screening BI 07/03/25 Z12.31 - Encounter for screening mammogram for malignant neoplasm of breast
[2025-07-03 15:41] VITALS: PULSE 64
--- OUTSIDE RECORDS SUMMARY | 2025-07-03 15:41 | XMS_ITS | Patient Health Record ---
Author Organization [facility] Address [address] [place] [id number] Care Team Providers Care Pin Worker Name Role Phone Enrique Ronald Unavailable [phone] Reason For Referral No Information Plan Of Treatment No Information
== END 2025-07-03 15:47 | disposition home or self-care (01) ==
LOC: HO.HMCH 14:50
PROVIDERS: PCP Internal Medicine; Visit Provider Internal Medicine
DX: Z00.00 Encounter for general adult medical examination without abnormal findings (principal); R51.9 Headache, unspecified; E28.2 Polycystic ovarian syndrome; J30.9 Allergic rhinitis, unspecified; F41.9 Anxiety disorder, unspecified; F33.9 Major depressive disorder, recurrent, unspecified; Z12.31 Encounter for screening mammogram for malignant neoplasm of breast

== ENCOUNTER → 2025-07-03 14:49 | Outpatient (BNVA) | payer OTHER, SELFPAY | PROVIDERS: PCP Internal Medicine; Visit Provider Internal Medicine | DX: Z00.00 Encounter for general adult medical examination without abnormal findings (principal); E28.2 Polycystic ovarian syndrome; R51.9 Headache, unspecified; J30.9 Allergic rhinitis, unspecified; F41.9 Anxiety disorder, unspecified; F33.9 Major depressive disorder, recurrent, unspecified | CPT/HCPCS: 96127 ==

== ENCOUNTER 2025-07-09 15:26 | Outpatient (REF) | payer OTHER, SELFPAY ==
--- NOTE | ~2025-07-09 | MM_ITS ---
EXAMINATION: MM SCREENING DIGITAL BREAST TOMOSYNTHESIS, BILATERAL CLINICAL INFORMATION: Screening. Asymptomatic. COMPARISON: Mammography: Comparison is made with available priors TECHNIQUE: Digital breast mammography with tomosynthesis is performed in both the craniocaudal and mediolateral oblique views along with computer-aided detection (CAD). FINDINGS: The breasts are heterogeneously dense, which may obscure small masses (ACR BI-RADS breast composition Category c). There are no significant masses, abnormal calcifications, or other abnormalities. MM/MM tomosynthesis screening BI IMPRESSION: No mammographic evidence of malignancy. ASSESSMENT: BI-RADS BI-RADS 1 - Negative RECOMMENDATION: Routine annual mammography screening. 1 year F/U This examination should not preclude the clinical evaluation of a suspicious palpable abnormality. This patient's information was entered into a reminder system with a target due date for their next mammogram. Electronically signed by: Zaria Nair DO 07/11/2025 12:55 PM EDT
--- OUTSIDE RECORDS SUMMARY | 2025-07-09 15:57 | XMS_ITS | Patient Health Record ---
Author Organization [facility] Address [address] [place] [id number] Care Team Providers Care Sex Worker Or Escort Name Role Phone Enrique Ronald Unavailable [phone] Reason For Referral No Information Plan Of Treatment No Information
== END 2025-07-09 15:27 | disposition home or self-care (01) ==
LOC: HO.MAMMO 15:26
PROVIDERS: PCP Internal Medicine; Visit Provider Internal Medicine
DX: Z12.31 Encounter for screening mammogram for malignant neoplasm of breast (principal)
CPT/HCPCS: 77063; 77067

== ENCOUNTER → 2025-07-09 15:30 | Outpatient (BNV) | payer OTHER, SELFPAY | PROVIDERS: PCP Internal Medicine; Visit Provider Internal Medicine | DX: Z12.31 Encounter for screening mammogram for malignant neoplasm of breast (principal) | CPT/HCPCS: 77063; 77067 ==